=== PATIENT | female | born 1965 | race African-American/Black ===

== ENCOUNTER 2018-03-06 10:25 | Inpatient (IN) | payer OTHER ==
[2018-03-06 11:12] VITALS: BMI 22.6
--- NOTE | 2018-03-06 14:04 | HP ---
CIWA Score - CIWA Score Nausea/Vomitin Muscle Tremors: 1-None Visible, but [place] Anxiety: 2 Agitation: 0-Normal Activity Paroxysmal Sweats: 2 Orientation: 2-Disoriented Date<2 days Tacttile Disturbances: 1-Very Mild Itch/Numbness Auditory Disturbances: 0-None Visual Disturbances: 0-None Headache: 2-Mild CIWA-Ar Total Score: 12 Admission ROS S - HPI Chief Complaint: ETOH WITHDRAWAL SYMPTOMS. Allergies/Adverse Reactions: Allergies Allergy/AdvReac Type Severity Reaction Status Date / Time No Known Allergies Allergy Verified 03/06/18 11:45 History of Present Illness: PATIENT PRESENTS WITH ETOH WITHDRAWAL SYMPTOMS. PATIENT RECENTLY RELAPSED 4 MONTHS AGO AFTER 30 YEARS SOBER. DRINKS 6 PACK OF BEER DAILY AND ALSO SMOKES CRACK SINCE 29 YEARS OLD. SMOKES UP TO 100 DOLLARS OF CRACK DAILY. LAST TIME SHE USED BOTH SUBSTANCES WAS THIS MORNING. DENIES HX OF SEIZURES. THIS IS PATIENTS FIRST ATTEMPT AT DETOX. PMH INCLUDES ASTHMA AND HTN. DENIES HX OF SI, HI AND SUICIDE ATTEMPTS. +MARIJUANA USE, OCCASIONAL. UNABLE TO QUANTIFY. Exam Limitations: No Limitations - Ebola screening Have you traveled outside of the country in the last 21 days: No Have you had contact with anyone from an Ebola affected area: No Have you been sick,other than usual withdrawal symptoms: No Do you have a fever: No - Review of Systems Constitutional: Night Sweats, Changes in sleep, Unexplained wgt Loss EENT: reports: Tearing. denies: Nose Congestion, Throat Pain Respiratory: denies: Cough, Shortness of Breath Cardiac: denies: Chest Pain, Edema, Irregular Heart Rate GI: reports: Nausea, Poor Appetite, Poor Fluid Intake, Abdominal cramping : reports: Frequency Musculoskeletal: reports: Muscle Pain Integumentary: reports: Flushing. denies: Dryness, Rash Neuro: reports: Numbness, Tingling, Tremors. denies: Weakness Endocrine: reports: Unexplained Weight Loss Hematology: reports: Anemia Psychiatric: reports: Anxious, Depressed Patient History - Patient Medical History Hx Anemia: Yes Hx Asthma: Yes Hx Chronic Obstructive Pulmonary Disease (COPD): No Hx Cancer: No Hx Cardiac Disorders: No Hx Congestive Heart Failure: No Hx Hypertension: Yes Hx Hypercholesterolemia: No Hx Pacemaker: No HX Cerebrovascular Accident: No Hx Seizures: No Hx Dementia: No Hx Diabetes: No Hx Gastrointestinal Disorders: No Hx Liver Disease: No Hx Genitourinary Disorders: No Hx Sexually Transmitted Disorders: No Hx Renal Disease (ESRD): No Hx Thyroid Disease: No Hx Human Immunodeficiency Virus (HIV): No Hx Hepatitis C: No Hx Depression: Yes (not treated medically.) Hx Suicide Attempt: No Hx Bipolar Disorder: No Hx Schizophrenia: No - Patient Surgical History Past Surgical History: Yes Hx Neurologic Surgery: Yes (craniotomy) Hx Cataract Extraction: No Hx Cardiac Surgery: No Hx Lung Surgery: No Hx Breast Surgery: No Hx Breast Biopsy: No Hx Abdominal Surgery: No Hx Appendectomy: No Hx Cholecystectomy: No Hx Genitourinary Surgery: No Hx Section: No Hx Orthopedic Surgery: No Hx Hysterectomy: No Anesthesia Reaction: No - PPD History Previous Implant?: Yes Documented Results: Negative w/o proof Implanted On Prior R Admission?: No PPD to be Administered?: Yes - Reproductive History Patient is a Female of Child Bearing Age (11 -55 yrs old): Yes Patient : No - Smoking Cessation Smoking history: Current every day smoker Have you smoked in the past 12 months: Yes Aproximately how many cigarettes per day: 10 Hx Chewing Tobacco Use: No Initiated information on smoking cessation: Yes 'Breaking Loose' booklet given: 03/06/18 - Substance & Tx. History Hx Alcohol Use: Yes Hx Substance Use: Yes Substance Use Type: Alcohol, Cocaine, Marijuana - Substances Abused Crack Route: Smoking Frequency: Daily Amount used: $100-150 Age of first use: 31 Date of Last Use: 03/05/18 Alcohol-beer/wine Route: Oral Frequency: Daily Amount used: 1-6 pk./1 pt. Age of first use: 19 Date of Last Use: 03/06/18 Family Disease History - Family Disease History Family Disease History: [place]: Mother (BONE CANCER) Admission Physical Exam B[facility] - Vital Signs Vital Signs: Vital Signs - 24 hr 03/06/18 11:04 Temperature 98.6 F Pulse Rate 80 Respiratory 18 Rate Blood Pressure 174/107 - Physical General Appearance: Yes: No Apparent Distress, Appropriately Dressed, Intoxicated, Tremorous, Anxious HEENTM: Yes: EOMI, Hearing grossly Normal, Normocephalic, NILE, Pharynx Normal Respiratory: Yes: Chest Non-Tender, Lungs Clear, Normal Breath Sounds, No Respiratory Distress, No Accessory Muscle Use Neck: Yes: No masses,lesions,Nodules, Supple Breast: Yes: Breast Exam Deferred Cardiology: Yes: Regular Rhythm, Regular Rate, S1, S2 Abdominal: Yes: Normal Bowel Sounds, Non Tender, Soft Genitourinary: Yes: Frequency. No: Burning Back: Yes: Normal Inspection, Muscle Spasm Extremities: Yes: Normal Inspection, Normal Range of Motion, Non-Tender, Tremors Neurological: Yes: insurance healthcare consultant II-XII NML intact, Alert, Motor Strength 5/5, Depressed Affect Integumentary: Yes: Normal Color, Warm, Moist Lymphatic: Yes: Within Normal Limits - Diagnostic (1) Alcohol dependence with uncomplicated withdrawal Current Visit: Yes Status: Acute (2) Cocaine dependence Current Visit: Yes Status: Chronic Qualifiers: Substance use status: uncomplicated Qualified Code(s): F14.20 - Cocaine dependence, uncomplicated (3) Marijuana dependence Current Visit: Yes Status: Chronic (4) Asthma Current Visit: Yes Status: Acute Qualifiers: Asthma severity: mild (5) HTN (hypertension) Current Visit: Yes Status: Chronic Qualifiers: Hypertension type: essential hypertension Qualified Code(s): I10 - Essential (primary) hypertension (6) Depressed affect Current Visit: Yes Status: Suspected Cleared for Admission [facility] - Detox or Rehab [facility] Level of Care: Medically Managed Detox Regimen/Protocol: Librium [facility] Breath Alcohol Content Breath Alcohol Content: 0.063 Urine Pregancy Test - Result Urine Test Results: Negative- NO Line Present Urine Drug Screen - Results Drug Screen Negative: No Urine Drug Screen Results: THC-Marijuana, OUMAR-Cocaine
[2018-03-06] MEDS ORDERED: MAGNESIUM CITRATE 300 ML BOTTLE PO PRN (14:21)
[2018-03-06] MEDS ORDERED: IBUPROFEN 400 MG TABLET (FP) PO PRN (14:21)
[2018-03-06] MEDS ORDERED: MAG HYDROX/AL HYDROX/SIMETH 30 ML UNIT-DOSE CUP PO PRN (14:21)
[2018-03-06] MEDS ORDERED: LOPERAMIDE HCL 2 MG CAPSULE PO PRN (14:21)
[2018-03-06] MEDS ORDERED: MENTHOL/PHENOL 1 EACH UD MM PRN (14:21)
[2018-03-06] MEDS ORDERED: guaiFENesin/D-METHORPHAN HB 10 ML UNIT-DOSE CUPS PO PRN (14:21)
[2018-03-06] MEDS ORDERED: NICOTINE POLACRILEX 2 MG GUM BUC PRN (14:21)
[2018-03-06] MEDS ORDERED: hydrOXYzine PAMOATE 50 MG CAPSULE (FP) PO PRN (14:21)
[2018-03-06] MEDS ORDERED: P-EPHED 60MG/TRIPROLIDI 2.5MG TABLET PO PRN (14:21)
[2018-03-06] MEDS ORDERED: MAGNESIUM HYDROX 2400MG/30ML ORAL SUSPENSION 30 ML CUP PO PRN (14:21)
[2018-03-06] MEDS ORDERED: ALBUTEROL SO4 8 GM HFA INHALER IH PRN (14:25)
--- NOTE | 2018-03-06 14:31 | CONSULT ---
[facility] Psychiatric Consult - Data Date of interview: 03/06/18 [facility] Identifying data: This is a 52 years old female, mother of three, living alone, unemployed, on PA, with no psychiatric hospitalization history, reports alcohol withdrawal symptoms, reports Alcohol, Crack, Cannabis and Nicotijne dependence. Substance Abuse History: Smoking history: Current every day smoker. Have you smoked in the past 12 months: Yes. Aproximately how many cigarettes per day: 10. Hx Chewing Tobacco Use: No. Initiated information on smoking cessation: Yes. 'Breaking Loose' booklet given: 03/06/18. - Substance & Tx. History. Hx Alcohol Use: Yes. Hx Substance Use: Yes. Substance Use Type: Alcohol, Cocaine , Marijuana. - Substances Abused. Crack. Route: Smoking. Frequency: Daily. Amount used: $100-150. Age of first use: 31. Date of Last Use: . Alcohol-beer/wine. Route: Oral. Frequency: Daily. Amount used: 1-6 pk./1 pt. Age of first use: 19. Date of Last Use: 03/06/18 Medical History: HTN, Asthma Psychiatric History: Patient reports history of depression and anxiety, reports no suicidal, homiscidal history, reports no psychiatric medications taking prior to admission. Physical/Sexual Abuse/Trauma History: Denies Additional Comment: Observation. Detox Unit Care Protocol Mental Status Exam - Mental Status Exam Alert and Oriented to: Place, Person Cognitive Function: Fair Patient Appearance: Well Groomed Mood: Apprehensive Affect: Mood Congruent Patient Behavior: Cooperative Speech Pattern: Appropriate Voice Loudness: Normal Thought Process: Goal Oriented Thought Disorder: Being Controlled Hallucinations: Denies Suicidal Ideation: Denies Homicidal Ideation: Denies Insight/Judgement: Fair Sleep: Difficulty falling asleep Appetite: Weight loss Muscle strength/Tone: Mild Hypotonicity Gait/Station: Normal Additional Comments: Observation. Detox Unit Care Protocol Psychiatric Findings - Problem List ([place] 1, 2,3) (1) Nicotine dependence Current Visit: Yes Status: Acute (2) Alcohol dependence with uncomplicated withdrawal Current Visit: Yes Status: Acute (3) Asthma Current Visit: Yes Status: Acute Qualifiers: Asthma severity: mild (4) Cocaine dependence Current Visit: Yes Status: Chronic Qualifiers: Substance use status: uncomplicated Qualified Code(s): F14.20 - Cocaine dependence, uncomplicated (5) HTN (hypertension) Current Visit: Yes Status: Chronic Qualifiers: Hypertension type: essential hypertension Qualified Code(s): I10 - Essential (primary) hypertension (6) Marijuana dependence Current Visit: Yes Status: Chronic - Initial Treatment Plan Initial Treatment Plan: Observation. Detox Unit Care Protocol
[2018-03-06] MEDS ORDERED: cloNIDine HCL 0.1 MG TABLET PO ONE (14:45)
--- NOTE | 2018-03-06 15:42 | EKG ---
Test Reason : Blood Pressure : / mmHG Vent. Rate : 076 BPM Atrial Rate : 076 BPM P-R Int : 134 ms QRS Dur : 082 ms QT Int : 394 ms P-R-T Axes : 051 025 -52 degrees QTc Int : 443 ms NORMAL SINUS RHYTHM POSSIBLE LEFT ATRIAL ENLARGEMENT LEFT VENTRICULAR HYPERTROPHY T WAVE ABNORMALITY, CONSIDER INFERIOR ISCHEMIA T WAVE ABNORMALITY, CONSIDER ANTEROLATERAL ISCHEMIA ABNORMAL ECG NO PREVIOUS ECGS AVAILABLE Confirmed by FRANK ELIZALDE, YANET ([id number]) on 03/06/2018 3:41:53 PM Referred By: Confirmed By:YANET MARIE MD
[2018-03-06] MEDS: chlordiazePOXIDE HCL 25 MG CAPSULE PO PRN (15:58)
[2018-03-06] MEDS: chlordiazePOXIDE HCL 25 MG CAPSULE PO SCH ×2 (17:27→22:04)
[2018-03-06] MEDS: ACETAMINOPHEN 325 MG TABLET (FP) PO PRN (19:09)
--- NOTE | 2018-03-06 19:44 | PN ---
[facility] Progress Note Note: Vital Signs Temperature 101.5 F H 03/06/18 17:37 Pulse Rate 90 03/06/18 17:37 Respiratory Rate 18 03/06/18 17:37 Blood Pressure 158/90 03/06/18 17:37 O2 Sat by Pulse Oximetry (%) give tylenol repeat v/s in an hour labs pending if fever persist, patient to be transfer to [facility] continue to monitor
[2018-03-06] MEDS ORDERED: MELATONIN 5 MG TABLETS PO PRN (22:00)
[2018-03-06] MEDS: THIAMINE HCL 100 MG TABLET (FP) PO SCH (22:03)
[2018-03-07] MEDS: chlordiazePOXIDE HCL 25 MG CAPSULE PO SCH ×4 (05:30→22:18)
[2018-03-07 11:13] LABS: HEMATOCRIT 44.6 % (32.4-45.2); HEMOGLOBIN 14.3 GM/dL (10.7-15.3); MCH 27.9 pg (25.7-33.7); MCHC 32.1 g/dl (32.0-36.0); MEAN CELL VOLUME 86.9 fl (80-96); MEAN PLT VOLUME 7.8 fl (7.5-11.1); PLATELET COUNT 356 K/MM3 (134-434); RBC 5.14 M/mm3 (3.60-5.2); RDW 14.2 % (11.6-15.6); WHITE BLOOD COUNT 7.9 K/mm3 (4.0-10.0)
--- NOTE | 2018-03-07 11:14 | PN ---
[facility] CIWA - CIWA Score Nausea/Vomitin Muscle Tremors: 2 Anxiety: 2 Agitation: 2 Paroxysmal Sweats: 3 Orientation: 0-Oriented Tacttile Disturbances: 1-Very Mild Itch/Numbness Auditory Disturbances: 0-None Visual Disturbances: 0-None Headache: 0-None Present CIWA-Ar Total Score: 12 BHS Progress Note (SOAP) Subjective: interruptedd sleep sweats, no fever, cough , sob or dysuria , WANTS A SMOKING PATCH Objective: 03/07/18 11:09 Vital Signs Temperature 97.9 F 03/07/18 09:39 Pulse Rate 84 03/07/18 09:39 Respiratory Rate 18 03/07/18 09:39 Blood Pressure 134/84 03/07/18 09:39 O2 Sat by Pulse Oximetry (%) pending labs pt aox3 in nad ambulating , Assessment: 03/07/18 11:09 withdrawal sx's fever last night AT PRESENT PT APPEARING WELL W/O COMPLAINTSTEMP 97.9 ; LABS PENDING Plan: CONT. DETOX INCREASE FLUIDS MONITOR TEMPS F/UP PENDING LABS NICOTINE 21 MG /DAY ENSURE BID
[2018-03-07 11:19] LABS: CHLORIDE 107 mmol/L (98-107); POTASSIUM 3.7 mmol/L (3.5-5.1); SODIUM 143 mmol/L (136-145)
[2018-03-07 11:28] LABS: ALBUMIN 3.5 g/dl (3.4-5.0); ALK PHOS 112 U/L (45-117); ANION GAP 16 MMOL/L (8-16); BILIRUBIN,TOTAL 0.5 mg/dL (0.2-1.0); BLOOD UREA NITROGEN 11 mg/dL (7-18); CALCIUM 9.2 mg/dL (8.5-10.1); CO2 20 mmol/L (21-32); CREATININE 0.8 mg/dL (0.55-1.3); GLUCOSE,RANDOM 86 mg/dL (74-106); SGOT/AST 15 U/L (15-37); SGPT/ALT 18 U/L (13-61); TOT PROT 7.5 g/dl (6.4-8.2)
[2018-03-07] MEDS: chlordiazePOXIDE HCL 25 MG CAPSULE PO PRN (11:58)
[2018-03-07] MEDS: NICOTINE 21 MG/24 HOURS TOPICAL PATCH TD SCH (12:00)
[2018-03-07] MEDS: PRENATAL VITAMINS W/ FOLIC ACID TABLET (FP) PO SCH (12:00)
[2018-03-07 17:45] LABS: URINE APPEARANCE CLOUDY; URINE BILIRUBIN NEGATIVE (<2.0 mg/dL); URINE COLOR YELLOW; URINE GLUCOSE (UA) NEGATIVE (NEGATIVE); URINE KETONE NEGATIVE (NEGATIVE); URINE NITRITE NEGATIVE (NEGATIVE); URINE PROTEIN NEGATIVE (NEGATIVE); URINE UROBILINOGEN NEGATIVE mg/dL (0.2-1.0)
[2018-03-07 17:50] LABS: URINE LEUK ESTERASE 3+ (NEGATIVE)
[2018-03-07 17:51] LABS: EPI CELLS RARE /HPF (FEW); URINE BACTERIA RARE /hpf (NONE SEEN); URINE HYALINE CAST 3 /lpf; URINE MUCUS RARE
[2018-03-07] MEDS: ACETAMINOPHEN 325 MG TABLET (FP) PO PRN (20:37)
[2018-03-07] MEDS: THIAMINE HCL 100 MG TABLET (FP) PO SCH (22:18)
[2018-03-08] MEDS: chlordiazePOXIDE HCL 25 MG CAPSULE PO SCH ×2 (06:14→10:08)
[2018-03-08] MEDS: PRENATAL VITAMINS W/ FOLIC ACID TABLET (FP) PO SCH (10:08)
[2018-03-08] MEDS: NICOTINE 21 MG/24 HOURS TOPICAL PATCH TD SCH (10:08)
--- NOTE | 2018-03-08 11:33 | PN ---
S CIWA - CIWA Score Nausea/Vomitin-Mild Nausea/No Vomiting Muscle Tremors: 1-None Visible, but [place] Anxiety: 1-Mildly Anxious Agitation: 1-Slight > Activity Paroxysmal Sweats: No Perspiration Orientation: 0-Oriented Tacttile Disturbances: 0-None Auditory Disturbances: 0-None Visual Disturbances: 0-None Headache: 0-None Present CIWA-Ar Total Score: 4 [facility] Progress Note (SOAP) Subjective: S: states she is feeling fine, would like ensure. O: Vital Signs - 24 hr 03/07/18 03/07/18 03/07/18 14:36 18:02 20:35 Temperature 98.0 F 98.0 F 100.2 F H Pulse Rate 86 86 Respiratory 20 20 Rate Blood Pressure 138/80 117/70 03/07/18 03/08/18 03/08/18 22:06 03:30 07:28 Temperature 100.2 F H 97 F L Pulse Rate 104 H 75 Respiratory 16 18 20 Rate Blood Pressure 147/80 137/78 03/08/18 08:43 Temperature 98.1 F Pulse Rate 94 H Respiratory 18 Rate Blood Pressure 106/74 Laboratory Tests 03/07/18 03/07/18 03/07/18 06:00 06:00 06:00 WBC 7.9 RBC 5.14 Hgb 14.3 Hct 44.6 MCV 86.9 MCH 27.9 MCHC 32.1 RDW 14.2 Plt Count 356 MPV 7.8 Sodium 143 Potassium 3.7 Chloride 107 Carbon Dioxide 20 L Anion Gap 16 BUN 11 Creatinine 0.8 Creat Clearance w eGFR > 60 Random Glucose 86 Calcium 9.2 Total Bilirubin 0.5 AST 15 ALT 18 Alkaline Phosphatase 112 Total Protein 7.5 Albumin 3.5 Urine Color Urine Appearance Urine pH Ur Specific [place] Urine Protein Urine Glucose (UA) Urine Ketones Urine Blood Urine Nitrite Urine Bilirubin Urine Urobilinogen Ur Leukocyte Esterase Urine WBC (Auto) Urine RBC (Auto) Ur Epithelial Cells Urine Bacteria Hyaline Casts Urine Mucus RPR Titer Nonreactive 03/07/18 14:00 WBC RBC Hgb Hct MCV MCH MCHC RDW Plt Count MPV Sodium Potassium Chloride Carbon Dioxide Anion Gap BUN Creatinine Creat Clearance w eGFR Random Glucose Calcium Total Bilirubin AST ALT Alkaline Phosphatase Total Protein Albumin Urine Color Yellow Urine Appearance Cloudy Urine pH 5.0 Ur Specific [place] 1.013 Urine Protein Negative Urine Glucose (UA) Negative Urine Ketones Negative Urine Blood 3+ H Urine Nitrite Negative Urine Bilirubin Negative Urine Urobilinogen Negative Ur Leukocyte Esterase 3+ H Urine WBC (Auto) 534 Urine RBC (Auto) 14 Ur Epithelial Cells Rare Urine Bacteria Rare Hyaline Casts 3 Urine Mucus Rare RPR Titer high WBC/blood in urine, nl VS Ass: ETOH WITHDRAWAL SYMPTOMS- continue detox protocol r/o UTI- pt asymptomatic, check Ucx- ordered
[2018-03-08] MEDS: chlordiazePOXIDE 5 MG CAPSULE PO SCH ×2 (18:10→23:01)
[2018-03-08] MEDS: THIAMINE HCL 100 MG TABLET (FP) PO SCH (23:01)
--- NOTE | 2018-03-09 02:28 | PN ---
S Progress Note Note: MD'S NOTE: INFORMED AT 2:00AM THAT THE PT. FELL ON HER LEFT KNEE ACCIDENTALLY C/O: MILD PAIN IN LEFT KNEE+ DENIES HITTING THE HEAD NOC O/E: THE PT. PIERRE X 3 NOT IN DISTRESS AND SHE IS AMBULATORY L/E: LEFT KNEE: NO SWELLING NOTED NO DEFORMITY NOTED MILD TENDERNESS ON PATE[place]ER REGION NOTED MOVEMENT ARE SATISFACTORY AT THIS TIME IMPRESSION: ACCIDENTAL FALL WITH SOFT TISSUE INJURY LEFT KNEE PLANS: ICE PACKING ON LEFT KNEE PRN ANALGESICS OBSERVATION WILL CONSIDER X-RAY OF LEFT KNEE - NEEDED PROVIDER GRACIE NAVA MD
[2018-03-09] MEDS: chlordiazePOXIDE 5 MG CAPSULE PO SCH ×2 (06:32→10:33)
[2018-03-09] MEDS: PRENATAL VITAMINS W/ FOLIC ACID TABLET (FP) PO SCH (09:38)
[2018-03-09] MEDS: NICOTINE 21 MG/24 HOURS TOPICAL PATCH TD SCH (09:38)
--- NOTE | 2018-03-09 13:47 | PN ---
S Progress Note (SOAP) Subjective: feeling better no tremor less sweat sleep better at night denies dizziness denies weakness reported fell "last night" right knee on the ground left knee skin intact no swell no redness full range of motion ambulate on [address] attend groups and meetings social with peers in day room Objective: 03/09/18 13:46 Vital Signs Temperature 97.7 F 03/09/18 12:15 Pulse Rate 76 03/09/18 12:15 Respiratory Rate 16 03/09/18 12:15 Blood Pressure 135/79 03/09/18 12:15 O2 Sat by Pulse Oximetry (%) Laboratory Last Values WBC 7.9 K/mm3 (4.0-10.0) 03/07/18 06:00 RBC 5.14 M/mm3 (3.60-5.2) 03/07/18 06:00 Hgb 14.3 GM/dL (10.7-15.3) 03/07/18 06:00 Hct 44.6 % (32.4-45.2) 03/07/18 06:00 MCV 86.9 fl (80-96) 03/07/18 06:00 MCH 27.9 pg (25.7-33.7) 03/07/18 06:00 MCHC 32.1 g/dl (32.0-36.0) 03/07/18 06:00 RDW 14.2 % (11.6-15.6) 03/07/18 06:00 Plt Count 356 K/MM3 (134-434) 03/07/18 06:00 MPV 7.8 fl (7.5-11.1) 03/07/18 06:00 Sodium 143 mmol/L (136-145) 03/07/18 06:00 Potassium 3.7 mmol/L (3.5-5.1) 03/07/18 06:00 Chloride 107 mmol/L (98-107) 03/07/18 06:00 Carbon Dioxide 20 mmol/L (21-32) L 03/07/18 06:00 Anion Gap 16 MMOL/L (8-16) 03/07/18 06:00 BUN 11 mg/dL (7-18) 03/07/18 06:00 Creatinine 0.8 mg/dL (0.55-1.3) 03/07/18 06:00 Creat Clearance w eGFR > 60 (>60) 03/07/18 06:00 Random Glucose 86 mg/dL (74-106) 03/07/18 06:00 Calcium 9.2 mg/dL (8.5-10.1) 03/07/18 06:00 Total Bilirubin 0.5 mg/dL (0.2-1.0) 03/07/18 06:00 AST 15 U/L (15-37) 03/07/18 06:00 ALT 18 U/L (13-61) 03/07/18 06:00 Alkaline Phosphatase 112 U/L (45-117) 03/07/18 06:00 Total Protein 7.5 g/dl (6.4-8.2) 03/07/18 06:00 Albumin 3.5 g/dl (3.4-5.0) 03/07/18 06:00 Urine Color Yellow 03/07/18 14:00 Urine Appearance Cloudy 03/07/18 14:00 Urine pH 5.0 (5.0-8.0) 03/07/18 14:00 Ur Specific [place] 1.013 (1.001-1.035) 03/07/18 14:00 Urine Protein Negative (NEGATIVE) 03/07/18 14:00 Urine Glucose (UA) Negative (NEGATIVE) 03/07/18 14:00 Urine Ketones Negative (NEGATIVE) 03/07/18 14:00 Urine Blood 3+ (NEGATIVE) H 03/07/18 14:00 Urine Nitrite Negative (NEGATIVE) 03/07/18 14:00 Urine Bilirubin Negative (<2.0 mg/dL) 03/07/18 14:00 Urine Urobilinogen Negative mg/dL (0.2-1.0) 03/07/18 14:00 Ur Leukocyte Esterase 3+ (NEGATIVE) H 03/07/18 14:00 Urine WBC (Auto) 534 /hpf (3-5) 03/07/18 14:00 Urine RBC (Auto) 14 /hpf (0-3) 03/07/18 14:00 Ur Epithelial Cells Rare /HPF (FEW) 03/07/18 14:00 Urine Bacteria Rare /hpf (NONE SEEN) 03/07/18 14:00 Hyaline Casts 3 /lpf 03/07/18 14:00 Urine Mucus Rare 03/07/18 14:00 RPR Titer Nonreactive (NONREACTIVE) 03/07/18 06:00 lab noted uti 03/09/18 13:48 Assessment: 03/09/18 13:48 mild withdrawal sx uti Plan: medically supervised detox bactrim ds bid
[2018-03-09] MEDS: SULFAMETHOXAZOLE/TRIMETHOPRIM 800MG/160MG D.S. TABLET PO SCH ×2 (14:19→22:04)
[2018-03-09] MEDS: chlordiazePOXIDE HCL 10 MG CAPSULE PO SCH ×2 (17:10→22:04)
[2018-03-09] MEDS: THIAMINE HCL 100 MG TABLET (FP) PO SCH (22:05)
[2018-03-10] MEDS: chlordiazePOXIDE HCL 10 MG CAPSULE PO SCH (06:23)
--- NOTE | 2018-03-10 08:39 | DS ---
[facility] Detox Discharge Summary Admission Date: 03/06/18 Discharge Date: 03/10/18 - History Present History: Alcohol Dependence Additional Comments: 52 years old female admitted on 03/06/18 for alcohol withdrawal sx completed alcohol detox regimen tolerated well denies alcohol withdrawal sx alert oriented x 3 no acute distress aftercare [facility] Pertinent Past History: patient agrees to follow up with [facility] for medical mental and addiction issues - Physical Exam Results Vital Signs: Vital Signs Temperature 98.1 F 03/10/18 06:00 Pulse Rate 79 03/10/18 06:00 Respiratory Rate 18 03/10/18 06:00 Blood Pressure 135/79 03/10/18 06:00 O2 Sat by Pulse Oximetry (%) Pertinent Admission Physical Exam Findings: Vital Signs Temperature 97.9 F 03/10/18 09:33 Pulse Rate 85 03/10/18 09:33 Respiratory Rate 18 03/10/18 09:33 Blood Pressure 128/75 03/10/18 09:33 O2 Sat by Pulse Oximetry (%) Laboratory Last Values WBC 7.9 K/mm3 (4.0-10.0) 03/07/18 06:00 RBC 5.14 M/mm3 (3.60-5.2) 03/07/18 06:00 Hgb 14.3 GM/dL (10.7-15.3) 03/07/18 06:00 Hct 44.6 % (32.4-45.2) 03/07/18 06:00 MCV 86.9 fl (80-96) 03/07/18 06:00 MCH 27.9 pg (25.7-33.7) 03/07/18 06:00 MCHC 32.1 g/dl (32.0-36.0) 03/07/18 06:00 RDW 14.2 % (11.6-15.6) 03/07/18 06:00 Plt Count 356 K/MM3 (134-434) 03/07/18 06:00 MPV 7.8 fl (7.5-11.1) 03/07/18 06:00 Sodium 143 mmol/L (136-145) 03/07/18 06:00 Potassium 3.7 mmol/L (3.5-5.1) 03/07/18 06:00 Chloride 107 mmol/L (98-107) 03/07/18 06:00 Carbon Dioxide 20 mmol/L (21-32) L 03/07/18 06:00 Anion Gap 16 MMOL/L (8-16) 03/07/18 06:00 BUN 11 mg/dL (7-18) 03/07/18 06:00 Creatinine 0.8 mg/dL (0.55-1.3) 03/07/18 06:00 Creat Clearance w eGFR > 60 (>60) 03/07/18 06:00 Random Glucose 86 mg/dL (74-106) 03/07/18 06:00 Calcium 9.2 mg/dL (8.5-10.1) 03/07/18 06:00 Total Bilirubin 0.5 mg/dL (0.2-1.0) 03/07/18 06:00 AST 15 U/L (15-37) 03/07/18 06:00 ALT 18 U/L (13-61) 03/07/18 06:00 Alkaline Phosphatase 112 U/L (45-117) 03/07/18 06:00 Total Protein 7.5 g/dl (6.4-8.2) 03/07/18 06:00 Albumin 3.5 g/dl (3.4-5.0) 03/07/18 06:00 Urine Color Yellow 03/07/18 14:00 Urine Appearance Cloudy 03/07/18 14:00 Urine pH 5.0 (5.0-8.0) 03/07/18 14:00 Ur Specific [place] 1.013 (1.001-1.035) 03/07/18 14:00 Urine Protein Negative (NEGATIVE) 03/07/18 14:00 Urine Glucose (UA) Negative (NEGATIVE) 03/07/18 14:00 Urine Ketones Negative (NEGATIVE) 03/07/18 14:00 Urine Blood 3+ (NEGATIVE) H 03/07/18 14:00 Urine Nitrite Negative (NEGATIVE) 03/07/18 14:00 Urine Bilirubin Negative (<2.0 mg/dL) 03/07/18 14:00 Urine Urobilinogen Negative mg/dL (0.2-1.0) 03/07/18 14:00 Ur Leukocyte Esterase 3+ (NEGATIVE) H 03/07/18 14:00 Urine WBC (Auto) 534 /hpf (3-5) 03/07/18 14:00 Urine RBC (Auto) 14 /hpf (0-3) 03/07/18 14:00 Ur Epithelial Cells Rare /HPF (FEW) 03/07/18 14:00 Urine Bacteria Rare /hpf (NONE SEEN) 03/07/18 14:00 Hyaline Casts 3 /lpf 03/07/18 14:00 Urine Mucus Rare 03/07/18 14:00 RPR Titer Nonreactive (NONREACTIVE) 03/07/18 06:00 lab noted - Treatment Hospital Course: Detox Protocol Followed, Detoxed Safely, Responded well, Discharged Condition Good, Rehab Referral Accepted Patient has Accepted a Rehab Referral to: [facility] - Medication Discharge Medications: Ambulatory Orders Albuterol Sulfate Inhaler - [Ventolin HFA Inhaler -] 2 inh PO Q4H PRN #1 inhaler 03/09/18 - Diagnosis (1) Alcohol dependence with uncomplicated withdrawal Status: Acute (2) Asthma Status: Chronic Qualifiers: Asthma severity: mild Asthma persistence: intermittent Asthma complication type: uncomplicated Qualified Code(s): J45.20 - Mild intermittent asthma, uncomplicated (3) HTN (hypertension) Status: Chronic Qualifiers: Hypertension type: essential hypertension Qualified Code(s): I10 - Essential (primary) hypertension (4) Nicotine dependence Status: Acute Qualifiers: Nicotine product type: cigarettes Substance use status: in withdrawal Qualified Code(s): F17.213 - Nicotine dependence, cigarettes, with withdrawal - AMA Did Patient Leave Against Medical Advice: No
[2018-03-10 09:33] VITALS: BP 128/75; PULSE 85; TEMP 97.9
== END 2018-03-10 11:40 | disposition home or self-care (01) | DRG 774 ==
LOC: YASAS 10:25 → Y6N 14:24
PROC: HZ2ZZZZ Detoxification Services for Substance Abuse Treatment (ICD-10-PCS; principal; 2018-03-06)
DX: F10.230 Alcohol dependence with withdrawal, uncomplicated (principal); F14.20 Cocaine dependence, uncomplicated; F12.20 Cannabis dependence, uncomplicated; F17.213 Nicotine dependence, cigarettes, with withdrawal; F32.9 Major depressive disorder, single episode, unspecified; I10 Essential (primary) hypertension; J45.20 Mild intermittent asthma, uncomplicated; R45.89 Other symptoms and signs involving emotional state
CPT/HCPCS: 36415; 80053; 81003; 81015; 85027; 86593; 87086; 87186; 93005; 93010; J0735

== ENCOUNTER 2018-03-31 19:12 | Inpatient (IN) | payer OTHER ==
[2018-03-31 19:38] VITALS: BMI 24.5
--- NOTE | 2018-03-31 21:28 | HP ---
Admission ROS [facility] Chief Complaint: Seeking admission to Rehab Allergies/Adverse Reactions: Allergies Allergy/AdvReac Type Severity Reaction Status Date / Time No Known Allergies Allergy Verified 03/06/18 11:45 History of Present Illness: 52 years old female with a history of alcohol dependence is seeking admission to Rehab. Patient has been in previous Rehab. She medical history of anxiety, hypertension, anemia, asthma and depression. Patient denies suicide attempt or suicidal ideation at this time Exam Limitations: No Limitations - Ebola screening Have you traveled outside of the country in the last 21 days: No (N) Have you had contact with anyone from an Ebola affected area: No Have you been sick,other than usual withdrawal symptoms: No Do you have a fever: No - Review of Systems Constitutional: No Symptoms Reported EENT: reports: No Symptoms Reported Respiratory: reports: No Symptoms reported Cardiac: reports: No Symptoms Reported GI: reports: No Symptoms Reported : reports: No Symptoms Reported Musculoskeletal: reports: No Symptoms Reported Integumentary: reports: No Symptoms Reported Neuro: reports: No Symptoms reported Endocrine: reports: No Symptoms Reported Hematology: reports: No Symptoms Reported Psychiatric: reports: No Sypmtoms Reported, Mood/Affect Appropiate, Orientated x3 Other Systems: Reviewed and Negative Patient History - Patient Medical History Hx Anemia: Yes (Not on medication) Hx Asthma: Yes (MDI) Hx Chronic Obstructive Pulmonary Disease (COPD): No Hx Cancer: No Hx Cardiac Disorders: No Hx Congestive Heart Failure: No Hx Hypertension: Yes (Not on medication) Hx Hypercholesterolemia: No Hx Pacemaker: No HX Cerebrovascular Accident: No Hx Seizures: No Hx Dementia: No Hx Diabetes: No Hx Gastrointestinal Disorders: No Hx Liver Disease: No Hx Genitourinary Disorders: No Hx Sexually Transmitted Disorders: No Hx Renal Disease (ESRD): No Hx Thyroid Disease: No Hx Human Immunodeficiency Virus (HIV): No Hx Hepatitis C: No Hx Depression: Yes (not treated medically.) Hx Suicide Attempt: No Hx Bipolar Disorder: No Hx Schizophrenia: No Other Medical History: Anxiety - Not on medication - Patient Surgical History Past Surgical History: Yes Hx Neurologic Surgery: Yes (craniotomy) Hx Cataract Extraction: No Hx Cardiac Surgery: No Hx Lung Surgery: No Hx Breast Surgery: No Hx Breast Biopsy: No Hx Abdominal Surgery: No Hx Appendectomy: No Hx Cholecystectomy: No Hx Genitourinary Surgery: No Hx Section: No Hx Orthopedic Surgery: No Hx Hysterectomy: No Anesthesia Reaction: No - PPD History Documented Results: Negative w/proof Date: 03/08/18 PPD to be Administered?: No - Reproductive History Patient is a Female of Child Bearing Age (11 -55 yrs old): Yes LMP comment: Menopausal - Smoking Cessation Smoking history: Current every day smoker Have you smoked in the past 12 months: Yes Aproximately how many cigarettes per day: 10 Hx Chewing Tobacco Use: No Initiated information on smoking cessation: Yes 'Breaking Loose' booklet given: 03/31/18 - Substance & Tx. History Hx Alcohol Use: Yes Hx Substance Use: Yes Substance Use Type: Cocaine, Marijuana Hx Substance Use Treatment: Yes ([facility]) Family Disease History - Family Disease History Family Disease History: CA: Mother (BONE CANCER) Admission Physical Exam [facility] - Vital Signs Vital Signs: Vital Signs - 24 hr 03/31/18 19:36 Temperature 97.7 F Pulse Rate 83 Respiratory 18 Rate Blood Pressure 140/80 - Physical General Appearance: Yes: No Apparent Distress HEENTM: Yes: Within Normal Limits, Normal ENT Inspection, Normocephalic, Normal Voice Respiratory: Yes: Lungs Clear, Normal Breath Sounds, No Respiratory Distress Neck: Yes: Supple Breast: Yes: Breast Exam Deferred Cardiology: Yes: Regular Rhythm, Regular Rate Abdominal: Yes: Normal Bowel Sounds, Soft Genitourinary: Yes: Within Normal Limits Back: Yes: Normal Inspection Musculoskeletal: Yes: Within Normal Limits Extremities: Yes: Normal Inspection Neurological: Yes: processing supervisor II-XII NML intact, Alert, Normal Mood/Affect Integumentary: Yes: Within Normal Limits Lymphatic: Yes: Within Normal Limits - Diagnostic (1) Depression Current Visit: Yes Status: Chronic Qualifiers: Depression Type: unspecified Qualified Code(s): F32.9 - Major depressive disorder, single episode, unspecified (2) Anxiety Current Visit: Yes Status: Chronic (3) Uncomplicated alcohol dependence Current Visit: Yes Status: Chronic (4) Nicotine dependence Current Visit: Yes Status: Chronic Qualifiers: Nicotine product type: cigarettes Substance use status: in withdrawal Qualified Code(s): F17.213 - Nicotine dependence, cigarettes, with withdrawal (5) Asthma Current Visit: Yes Status: Chronic Qualifiers: Asthma severity: mild Asthma persistence: intermittent Asthma complication type: uncomplicated Qualified Code(s): J45.20 - Mild intermittent asthma, uncomplicated (6) Cocaine dependence Current Visit: Yes Status: Chronic Qualifiers: Substance use status: uncomplicated Qualified Code(s): F14.20 - Cocaine dependence, uncomplicated (7) HTN (hypertension) Current Visit: Yes Status: Chronic Qualifiers: Hypertension type: essential hypertension Qualified Code(s): I10 - Essential (primary) hypertension (8) Marijuana dependence Current Visit: Yes Status: Chronic [facility] Breath Alcohol Content Breath Alcohol Content: 0 Urine Pregancy Test - Result Urine Test Results: Negative- NO Line Present Urine Drug Screen - Results Drug Screen Negative: No Urine Drug Screen Results: THC-Marijuana, OUMAR-Cocaine, BZO-Benzodiazepines
[2018-03-31] MEDS ORDERED: MELATONIN 5 MG TABLETS PO PRN (22:00)
[2018-03-31] MEDS ORDERED: guaiFENesin/D-METHORPHAN HB 10 ML UNIT-DOSE CUPS PO PRN (23:22)
[2018-03-31] MEDS ORDERED: LOPERAMIDE HCL 2 MG CAPSULE PO PRN (23:22)
[2018-03-31] MEDS ORDERED: MENTHOL/PHENOL 1 EACH UD MM PRN (23:22)
[2018-03-31] MEDS ORDERED: MAGNESIUM CITRATE 300 ML BOTTLE PO PRN (23:22)
[2018-03-31] MEDS ORDERED: MAGNESIUM HYDROX 2400MG/30ML ORAL SUSPENSION 30 ML CUP PO PRN (23:22)
[2018-03-31] MEDS ORDERED: ACETAMINOPHEN 325 MG TABLET (FP) PO PRN (23:22)
[2018-03-31] MEDS ORDERED: IBUPROFEN 400 MG TABLET (FP) PO PRN (23:22)
[2018-03-31] MEDS ORDERED: MAG HYDROX/AL HYDROX/SIMETH 30 ML UNIT-DOSE CUP PO PRN (23:22)
[2018-04-01] MEDS: PRENATAL VITAMINS W/ FOLIC ACID TABLET (FP) PO SCH (09:47)
[2018-04-01 11:10] LABS: MCH 27.3 pg (25.7-33.7); MCHC 31.8 g/dl (32.0-36.0); MEAN CELL VOLUME 85.7 fl (80-96); MEAN PLT VOLUME 7.3 fl (7.5-11.1); PLATELET COUNT 345 K/MM3 (134-434); RBC 4.78 M/mm3 (3.60-5.2); RDW 13.7 % (11.6-15.6); WHITE BLOOD COUNT 8.6 K/mm3 (4.0-10.0)
[2018-04-01 11:29] LABS: ALBUMIN 3.3 g/dl (3.4-5.0); ALK PHOS 115 U/L (45-117); ANION GAP 5 MMOL/L (8-16); BILIRUBIN,TOTAL 0.3 mg/dL (0.2-1); BLOOD UREA NITROGEN 17 mg/dL (7-18); CHLORIDE 106 mmol/L (98-107); CO2 29 mmol/L (21-32); CREATININE 0.7 mg/dL (0.55-1.3); GLUCOSE,RANDOM 115 mg/dL (74-106); SGOT/AST 21 U/L (15-37); SGPT/ALT 26 U/L (13-61); SODIUM 140 mmol/L (136-145); TOT PROT 6.9 g/dl (6.4-8.2)
--- NOTE | 2018-04-01 11:48 | EKG ---
Test Reason : Blood Pressure : / mmHG Vent. Rate : 074 BPM Atrial Rate : 074 BPM P-R Int : 142 ms QRS Dur : 092 ms QT Int : 438 ms P-R-T Axes : 052 024 006 degrees QTc Int : 486 ms NORMAL SINUS RHYTHM MINIMAL VOLTAGE CRITERIA FOR LVH, MAY BE NORMAL VARIANT SEPTAL INFARCT , AGE UNDETERMINED ABNORMAL ECG WHEN COMPARED WITH ECG OF 31-MAR-2018 22:12, NO SIGNIFICANT CHANGE WAS FOUND Confirmed by Arthur Bundy MD ([id number]) on 04/01/2018 11:48:08 AM Referred By: Confirmed By:Arthur Bundy MD
--- NOTE | 2018-04-01 12:44 | PN ---
[facility] Progress Note Note: Vital Signs Temperature 97.7 F 04/01/18 07:05 Pulse Rate 69 04/01/18 07:05 Respiratory Rate 18 04/01/18 07:05 Blood Pressure 142/85 04/01/18 07:05 O2 Sat by Pulse Oximetry (%) Laboratory Last Values WBC 8.6 K/mm3 (4.0-10.0) 04/01/18 07:00 RBC 4.78 M/mm3 (3.60-5.2) 04/01/18 07:00 Hgb 13.0 GM/dL (10.7-15.3) 04/01/18 07:00 Hct 41.0 % (32.4-45.2) 04/01/18 07:00 MCV 85.7 fl (80-96) 04/01/18 07:00 MCH 27.3 pg (25.7-33.7) 04/01/18 07:00 MCHC 31.8 g/dl (32.0-36.0) L 04/01/18 07:00 RDW 13.7 % (11.6-15.6) 04/01/18 07:00 Plt Count 345 K/MM3 (134-434) 04/01/18 07:00 MPV 7.3 fl (7.5-11.1) L 04/01/18 07:00 Sodium 140 mmol/L (136-145) 04/01/18 07:00 Potassium 4.0 mmol/L (3.5-5.1) 04/01/18 07:00 Chloride 106 mmol/L (98-107) 04/01/18 07:00 Carbon Dioxide 29 mmol/L (21-32) 04/01/18 07:00 Anion Gap 5 MMOL/L (8-16) L 04/01/18 07:00 BUN 17 mg/dL (7-18) 04/01/18 07:00 Creatinine 0.7 mg/dL (0.55-1.3) 04/01/18 07:00 Creat Clearance w eGFR > 60 (>60) 04/01/18 07:00 Random Glucose 115 mg/dL (74-106) H 04/01/18 07:00 Calcium 9.0 mg/dL (8.5-10.1) 04/01/18 07:00 Total Bilirubin 0.3 mg/dL (0.2-1) 04/01/18 07:00 AST 21 U/L (15-37) 04/01/18 07:00 ALT 26 U/L (13-61) 04/01/18 07:00 Alkaline Phosphatase 115 U/L (45-117) 04/01/18 07:00 Total Protein 6.9 g/dl (6.4-8.2) 04/01/18 07:00 Albumin 3.3 g/dl (3.4-5.0) L 04/01/18 07:00 RPR Titer Nonreactive (NONREACTIVE) 04/01/18 07:00 Labs reviewed U/A results pending Patient stable Continue to monitor
[2018-04-01] MEDS ORDERED: NICOTINE POLACRILEX 2 MG GUM BUC PRN (13:53)
[2018-04-01] MEDS: hydrOXYzine PAMOATE 50 MG CAPSULE (FP) PO PRN (15:49)
[2018-04-01 15:54] LABS: URINE APPEARANCE CLOUDY; URINE BILIRUBIN NEGATIVE (<2.0 mg/dL); URINE COLOR YELLOW; URINE GLUCOSE (UA) NEGATIVE (NEGATIVE); URINE KETONE NEGATIVE (NEGATIVE); URINE LEUK ESTERASE 1+ (NEGATIVE); URINE NITRITE NEGATIVE (NEGATIVE); URINE PROTEIN NEGATIVE (NEGATIVE)
[2018-04-01 17:39] LABS: CALCIUM OXALATE CRYSTALS MODERATE /hpf (NONE SEEN); EPI CELLS MODERATE /HPF (FEW); URINE BACTERIA MANY /hpf (NONE SEEN); URINE MUCUS MANY
[2018-04-01 17:43] LABS: URIC ACID CRYSTALS NONE SEEN /hpf (NONE SEEN)
[2018-04-01] MEDS: THIAMINE HCL 100 MG TABLET (FP) PO SCH (21:30)
[2018-04-01] MEDS: P-EPHED 60MG/TRIPROLIDI 2.5MG TABLET PO PRN (21:31)
[2018-04-02] MEDS: P-EPHED 60MG/TRIPROLIDI 2.5MG TABLET PO PRN (07:26)
[2018-04-02] MEDS ORDERED: PT OWN MED DRAWER 7, Y5N ONE ×3 (08:49→21:21)
[2018-04-02] MEDS: hydrOXYzine PAMOATE 50 MG CAPSULE (FP) PO PRN (09:26)
[2018-04-02] MEDS: PRENATAL VITAMINS W/ FOLIC ACID TABLET (FP) PO SCH (09:26)
[2018-04-02] MEDS: NICOTINE 21 MG/24 HOURS TOPICAL PATCH TD SCH (09:26)
--- NOTE | 2018-04-02 09:51 | EKG ---
Test Reason : Blood Pressure : / mmHG Vent. Rate : 071 BPM Atrial Rate : 071 BPM P-R Int : 144 ms QRS Dur : 092 ms QT Int : 460 ms P-R-T Axes : 060 039 021 degrees QTc Int : 499 ms NORMAL SINUS RHYTHM MODERATE VOLTAGE CRITERIA FOR LVH, MAY BE NORMAL VARIANT T WAVE ABNORMALITY, CONSIDER ANTERIOR ISCHEMIA ABNORMAL ECG WHEN COMPARED WITH ECG OF 06-MAR-2018 15:22, T WAVE INVERSION NO LONGER EVIDENT IN INFERIOR LEADS T WAVE INVERSION LESS EVIDENT IN ANTEROLATERAL LEADS QT HAS LENGTHENED Confirmed by SUMIT ELIZALDE, PILLO ([id number]) on 04/02/2018 9:50:39 AM Referred By: Confirmed By:PILLO ARANA MD
--- NOTE | 2018-04-02 11:31 | HP ---
Psychiatrist Admission - Data Date of interview: 04/02/18 Admission source: [facility] Identifying data: This is the first admission to [address] [place] [address] for this 52 years old AA mother of 2 grown children, homeless,supported by PA. Medical History: H/O Craniotomy,BA,Anemia,HTN. Psychiatric History: Denies previous psychiatric history. Physical/Sexual Abuse/Trauma History: denies Vital Signs: Vital Signs - 24 hr 04/02/18 04/02/18 04/02/18 00:30 03:30 07:10 Temperature 97.8 F Pulse Rate 69 Respiratory 16 16 18 Rate Blood Pressure 153/80 04/02/18 10:00 Temperature Pulse Rate 83 Respiratory Rate Blood Pressure 148/78 Allergies/Adverse Reactions: Allergies Allergy/AdvReac Type Severity Reaction Status Date / Time No Known Allergies Allergy Verified 03/31/18 21:53 Date of last physical exam: 03/31/18 Concur with the findings of this exam: Yes - Substance Abuse/Tx History Hx Alcohol Use: Yes (reports drinking since 19 yo,beer 2 six packs) Hx Substance Use: Yes (cocaine since 19 yo,spending $100 daily) Substance Use Type: Alcohol, Cocaine Hx Substance Use Treatment: Yes (completed shelter 22 yo,longest abstinence 22 yo) Mental Status Exam - Mental Status Exam Alert and Oriented to: Time, Place, Person Cognitive Function: Grossly Intact Patient Appearance: Well Groomed Mood: Euthymic Affect: Appropriate, Mood Congruent, Normal Range Patient Behavior: Cooperative Speech Pattern: Clear Voice Loudness: Normal Thought Process: Goal Oriented Thought Disorder: Not Present Hallucinations: Denies Suicidal Ideation: Denies Homicidal Ideation: Denies Insight/Judgement: Fair Sleep: Fair Appetite: Good Muscle strength/Tone: Normal Gait/Station: Normal Psychiatric Findings - Problem List ([place] 1, 2,3) (1) Asthma Current Visit: Yes Status: Chronic Qualifiers: Asthma severity: unspecified severity Asthma persistence: intermittent Asthma complication type: uncomplicated Qualified Code(s): J45.20 - Mild intermittent asthma, uncomplicated (2) Cocaine dependence Current Visit: Yes Status: Chronic Qualifiers: Substance use status: uncomplicated Qualified Code(s): F14.20 - Cocaine dependence, uncomplicated (3) HTN (hypertension) Current Visit: Yes Status: Chronic Qualifiers: Hypertension type: essential hypertension Qualified Code(s): I10 - Essential (primary) hypertension (4) Marijuana dependence Current Visit: Yes Status: Chronic (5) Nicotine dependence Current Visit: Yes Status: Chronic Qualifiers: Nicotine product type: cigarettes Substance use status: in withdrawal Qualified Code(s): F17.213 - Nicotine dependence, cigarettes, with withdrawal (6) Uncomplicated alcohol dependence Current Visit: Yes Status: Chronic
[2018-04-02] MEDS ORDERED: ALBUTEROL SO4 8 GM HFA INHALER IH PRN (13:12)
[2018-04-02] MEDS ORDERED: ALBUTEROL SO4 0.083% IH SOL 2.5 MG/3 ML VIAL.NEB. NEB PRN (13:13)
--- NOTE | 2018-04-02 13:16 | PN ---
[facility] Progress Note Note: Vital Signs Temperature 97.8 F 04/02/18 07:10 Pulse Rate 83 04/02/18 10:00 Respiratory Rate 18 04/02/18 07:10 Blood Pressure 148/78 04/02/18 10:00 O2 Sat by Pulse Oximetry (%) Laboratory Last Values WBC 8.6 K/mm3 (4.0-10.0) 04/01/18 07:00 RBC 4.78 M/mm3 (3.60-5.2) 04/01/18 07:00 Hgb 13.0 GM/dL (10.7-15.3) 04/01/18 07:00 Hct 41.0 % (32.4-45.2) 04/01/18 07:00 MCV 85.7 fl (80-96) 04/01/18 07:00 MCH 27.3 pg (25.7-33.7) 04/01/18 07:00 MCHC 31.8 g/dl (32.0-36.0) L 04/01/18 07:00 RDW 13.7 % (11.6-15.6) 04/01/18 07:00 Plt Count 345 K/MM3 (134-434) 04/01/18 07:00 MPV 7.3 fl (7.5-11.1) L 04/01/18 07:00 Sodium 140 mmol/L (136-145) 04/01/18 07:00 Potassium 4.0 mmol/L (3.5-5.1) 04/01/18 07:00 Chloride 106 mmol/L (98-107) 04/01/18 07:00 Carbon Dioxide 29 mmol/L (21-32) 04/01/18 07:00 Anion Gap 5 MMOL/L (8-16) L 04/01/18 07:00 BUN 17 mg/dL (7-18) 04/01/18 07:00 Creatinine 0.7 mg/dL (0.55-1.3) 04/01/18 07:00 Creat Clearance w eGFR > 60 (>60) 04/01/18 07:00 Random Glucose 115 mg/dL (74-106) H 04/01/18 07:00 Calcium 9.0 mg/dL (8.5-10.1) 04/01/18 07:00 Total Bilirubin 0.3 mg/dL (0.2-1) 04/01/18 07:00 AST 21 U/L (15-37) 04/01/18 07:00 ALT 26 U/L (13-61) 04/01/18 07:00 Alkaline Phosphatase 115 U/L (45-117) 04/01/18 07:00 Total Protein 6.9 g/dl (6.4-8.2) 04/01/18 07:00 Albumin 3.3 g/dl (3.4-5.0) L 04/01/18 07:00 Urine Color Yellow 04/01/18 10:15 Urine Appearance Cloudy 04/01/18 10:15 Urine pH 5.0 (5.0-8.0) 04/01/18 10:15 Ur Specific [place] 1.024 (1.010-1.035) 04/01/18 10:15 Urine Protein Negative (NEGATIVE) 04/01/18 10:15 Urine Glucose (UA) Negative (NEGATIVE) 04/01/18 10:15 Urine Ketones Negative (NEGATIVE) 04/01/18 10:15 Urine Blood 2+ (NEGATIVE) H 04/01/18 10:15 Urine Nitrite Negative (NEGATIVE) 04/01/18 10:15 Urine Bilirubin Negative (<2.0 mg/dL) 04/01/18 10:15 Urine Urobilinogen 2.0 mg/dL (0.2-1.0) H 04/01/18 10:15 Ur Leukocyte Esterase 1+ (NEGATIVE) H D 04/01/18 10:15 Urine WBC (Auto) 73 /hpf (3-5) 04/01/18 10:15 Urine RBC (Auto) 169 /hpf (0-3) 04/01/18 10:15 Ur Epithelial Cells Moderate /HPF (FEW) 04/01/18 10:15 Calcium Oxalate Crystal Moderate /hpf (NONE SEEN) 04/01/18 10:15 Uric Acid Crystals None seen /hpf (NONE SEEN) 04/01/18 10:15 Urine Bacteria Many /hpf (NONE SEEN) 04/01/18 10:15 Urine Mucus Many 04/01/18 10:15 RPR Titer Nonreactive (NONREACTIVE) 04/01/18 07:00 c/o of cold symptoms re: cough hx of asthma uses ventolin out patient. AOX3 no distress wheezing skin intact, no cyanosis or erythema full ROM ambualting in the unit cough secondary to asthma home meds reviewed: ordered ventolin PRN Flonase qd PRN montelukast PRN DUONEB PRN repeat u/a increase fluids continue to monitor
[2018-04-02] MEDS: ALBUTEROL SO4 2.5/IPRATROPIUM 0.5 INH SOL 3 ML VIAL.NEB. NEB PRN (13:40)
--- NOTE | 2018-04-02 15:26 | PN ---
[facility] Progress Note Note: Vital Signs Temperature 97.8 F 04/02/18 07:10 Pulse Rate 83 04/02/18 10:00 Respiratory Rate 18 04/02/18 07:10 Blood Pressure 148/78 04/02/18 10:00 O2 Sat by Pulse Oximetry (%) Loperamide and vistaril d/c d/t risk for QT prolongation
[2018-04-02] MEDS: FLUTICASONE PROP 0.05% 16 GM NASAL SPRAY NS SCH (16:30)
[2018-04-02] MEDS: MONTELUKAST NA 10 MG TABLET PO SCH (21:21)
[2018-04-02] MEDS: MELATONIN 5 MG TABLETS PO PRN (21:22)
[2018-04-02] MEDS: THIAMINE HCL 100 MG TABLET (FP) PO SCH (21:22)
[2018-04-03] MEDS: ALBUTEROL SO4 2.5/IPRATROPIUM 0.5 INH SOL 3 ML VIAL.NEB. NEB PRN (03:15)
[2018-04-03] MEDS: PRENATAL VITAMINS W/ FOLIC ACID TABLET (FP) PO SCH (09:49)
[2018-04-03] MEDS: FLUTICASONE PROP 0.05% 16 GM NASAL SPRAY NS SCH (09:50)
[2018-04-03] MEDS: NICOTINE 21 MG/24 HOURS TOPICAL PATCH TD SCH (09:51)
[2018-04-03 10:16] LABS: URINE APPEARANCE SLCLOUDY; URINE BILIRUBIN NEGATIVE (<2.0 mg/dL); URINE COLOR LTYELLOW; URINE GLUCOSE (UA) NEGATIVE (NEGATIVE); URINE KETONE NEGATIVE (NEGATIVE); URINE LEUK ESTERASE 1+ (NEGATIVE); URINE NITRITE NEGATIVE (NEGATIVE); URINE PROTEIN NEGATIVE (NEGATIVE); URINE UROBILINOGEN NEGATIVE mg/dL (0.2-1.0)
[2018-04-03 10:57] LABS: EPI CELLS FEW /HPF (FEW)
[2018-04-03] MEDS ORDERED: PT OWN MED DRAWER 7, Y5N ONE (15:33)
[2018-04-03] MEDS: THIAMINE HCL 100 MG TABLET (FP) PO SCH (21:05)
[2018-04-03] MEDS: MONTELUKAST NA 10 MG TABLET PO SCH (21:05)
[2018-04-03] MEDS: MELATONIN 5 MG TABLETS PO PRN (21:06)
[2018-04-04 08:28] VITALS: BP 165/84; PULSE 67; TEMP 97.2
--- NOTE | 2018-04-04 09:02 | PN ---
S Progress Note (SOAP) Subjective: PT IS A 52 Y/O FEMALE WITH A HX OF ALCOHOL,COCAINE AND MARIJUANA USE ADMITTED HERE FOR REHAB TREATMENT. PT WAS ALSO DETOXED HERE ON 03/06/18 TO 03/10/18. PT AND STAFF STATE WHILE SHE WAS EATING BREAKFAST THIS MORNING SHE C/O LEFT CHEST PAIN RADIATING TO SHOULDER AND UPPER ARM WITH SOB. PT STATES FUNNY FEELING TO THE LEFT ARM AND TRYING TO CATCH HER BREATH INTERMITTENTLY. PT HAS A HX OF ASTHMA AND HTN. NO KNOWN MEDS FOR HTN BUT ON SINGULAIR, ALBUTEROL INHALER AND DUONEB PRN. Objective: 04/04/18 09:00 Vital Signs 04/04/18 04/04/18 04/04/18 03:30 06:52 08:20 Temperature 98.0 F 97.2 F L Pulse Rate 73 67 Respiratory 16 16 19 Rate Blood Pressure 148/80 165/84 O2 Sat by Pulse 99 Oximetry (%) Laboratory Tests 04/01/18 04/01/18 04/01/18 07:00 07:00 07:00 WBC 8.6 RBC 4.78 Hgb 13.0 Hct 41.0 MCV 85.7 MCH 27.3 MCHC 31.8 L RDW 13.7 Plt Count 345 MPV 7.3 L Sodium 140 Potassium 4.0 Chloride 106 Carbon Dioxide 29 Anion Gap 5 L BUN 17 Creatinine 0.7 Creat Clearance w eGFR > 60 Random Glucose 115 H Calcium 9.0 Total Bilirubin 0.3 AST 21 ALT 26 Alkaline Phosphatase 115 Total Protein 6.9 Albumin 3.3 L Urine Color Urine Appearance Urine pH Ur Specific [place] Urine Protein Urine Glucose (UA) Urine Ketones Urine Blood Urine Nitrite Urine Bilirubin Urine Urobilinogen Ur Leukocyte Esterase Urine WBC (Auto) Urine RBC (Auto) Ur Epithelial Cells Calcium Oxalate Crystal Uric Acid Crystals Urine Bacteria Urine Mucus RPR Titer Nonreactive 04/01/18 04/03/18 10:15 07:00 WBC RBC Hgb Hct MCV MCH MCHC RDW Plt Count MPV Sodium Potassium Chloride Carbon Dioxide Anion Gap BUN Creatinine Creat Clearance w eGFR Random Glucose Calcium Total Bilirubin AST ALT Alkaline Phosphatase Total Protein Albumin Urine Color Yellow Ltyellow Urine Appearance Cloudy Slcloudy Urine pH 5.0 6.0 Ur Specific [place] 1.024 1.010 Urine Protein Negative Negative Urine Glucose (UA) Negative Negative Urine Ketones Negative Negative Urine Blood 2+ H 1+ H Urine Nitrite Negative Negative Urine Bilirubin Negative Negative Urine Urobilinogen 2.0 H Negative Ur Leukocyte Esterase 1+ H D 1+ H Urine WBC (Auto) 73 7 Urine RBC (Auto) 169 1 Ur Epithelial Cells Moderate Few Calcium Oxalate Crystal Moderate Uric Acid Crystals None seen Urine Bacteria Many Urine Mucus Many RPR Titer EKG:NSR MODERATE VOLTAGE CRITERIA FOR LVH NONSPECIFIC T WAVE ABNORMALITY PROLONGED QT ABNORMAL ECG PULSE OX: 99% ROOM AIR Assessment: 04/04/18 09:01 CHEST PAIN Plan: TRANSFER TO [facility] FOR FURTHER EVALUATION AND POSSIBLE TREATMENT. PT MAY RETURN TO CONTINUE REHAB AFTER MEDICAL CLEARANCE. REPORT G[facility]Z [facility] WHO [facility]EPT[facility] THIS PATIENTS CASE.
[2018-04-04] MEDS ORDERED: cloNIDine HCL 0.1 MG TABLET PO ONE (09:21)
[2018-04-04] MEDS: FLUTICASONE PROP 0.05% 16 GM NASAL SPRAY NS SCH (10:59)
[2018-04-04] MEDS: PRENATAL VITAMINS W/ FOLIC ACID TABLET (FP) PO SCH (11:00)
[2018-04-04] MEDS: NICOTINE 21 MG/24 HOURS TOPICAL PATCH TD SCH (11:00)
--- NOTE | 2018-04-04 15:37 | PN ---
[facility] Progress Note Note: PT WILL BE ADMITTED AT [facility] PER NURSE MARLENE WHO SPOKE TO STAFF AT [facility] ER. REASON:CHEST PAIN.
--- NOTE | 2018-04-05 10:37 | EKG ---
Test Reason : Blood Pressure : / mmHG Vent. Rate : 068 BPM Atrial Rate : 068 BPM P-R Int : 148 ms QRS Dur : 096 ms QT Int : 436 ms P-R-T Axes : 046 027 004 degrees QTc Int : 463 ms NORMAL SINUS RHYTHM VOLTAGE CRITERIA FOR LEFT VENTRICULAR HYPERTROPHY CANNOT RULE OUT SEPTAL INFARCT (CITED ON OR BEFORE 01-APR-2018) ABNORMAL ECG WHEN COMPARED WITH ECG OF 01-APR-2018 09:39, NONSPECIFIC T WAVE ABNORMALITY NO LONGER EVIDENT IN ANTERIOR LEADS Confirmed by KEVYN SANTAMARIA MD ([id number]) on 04/05/2018 10:37:10 AM Referred By: Confirmed By:KEVYN SANTAMARIA MD
== END 2018-04-04 15:35 | disposition short-term general hospital (02) | DRG 772 ==
LOC: YASAS 19:12 → Y3E 21:49
PROVIDERS: ADMIT Psychiatry & Neurology Psychiatry; ATTEND Psychiatry & Neurology Psychiatry
PROC: HZ42ZZZ Group Counseling for Substance Abuse Treatment, Cognitive-Behavioral (ICD-10-PCS; principal; 2018-03-31)
DX: F10.20 Alcohol dependence, uncomplicated (principal); F14.20 Cocaine dependence, uncomplicated; F12.20 Cannabis dependence, uncomplicated; F17.213 Nicotine dependence, cigarettes, with withdrawal; F32.9 Major depressive disorder, single episode, unspecified; F41.9 Anxiety disorder, unspecified; J45.20 Mild intermittent asthma, uncomplicated; I10 Essential (primary) hypertension; R07.9 Chest pain, unspecified; I45.81 Long QT syndrome; R94.31 Abnormal electrocardiogram [ECG] [EKG]
CPT/HCPCS: 36415; 80053; 81003; 81015; 85027; 86593; 93005; 93010; 94640; J7620

== ENCOUNTER 2018-04-04 09:50 | Observation (INO) | payer OTHER ==
[2018-04-04 10:01] VITALS: BMI 25.8
[2018-04-04] MEDS ORDERED: ASPIRIN 81 MG CHEWABLE TABLETS PO ONE (10:46)
[2018-04-04] MEDS ORDERED: ASPIRIN 325 MG TABLET ONE (10:47)
--- NOTE | 2018-04-04 10:55 | PDOC ---
History of Present Illness - General History Source: Patient Exam Limitations: No Limitations - History of Present Illness Initial Comments: 04/04/18 11:04 The patient is a 52-year-old female with past medical history significant for asthma, anemia, Chiari malformation s/p craniotomy (4 years ago) and HTN presents to the emergency department with chest pain. The patient presents chest tightness that radiates to the left arm since earlier today. The patient reports associated symptoms of shortness of breath and palpitations. The patient presents from [facility], where she is seeking detox for cocaine use since Saturday (03/31/2018). The patient reports she was sober for 28 years and about a month prior she relapsed. Denies prior similar pain, fever, chills, leg swelling, calf pain. Denies family history of cardiac issues. Denies dysuria, hematuria, frequency or urgency to urinate. Allergies: NKA Social history: The patient reports her last alcohol use was over the weekend. The patient reports last tobacco use was over a month ago. Surgical history: DNC and craniotomy PCP: None reported Neurologist: Dr. Yogi Nettles <Nallely Hayes - Last Filed: 04/04/18 11:04> - General History Source: Patient Exam Limitations: No Limitations <Rachael Yeung - Last Filed: 04/04/18 16:17> - General Chief Complaint: Chest Pain Stated Complaint: CHEST PAIN Time Seen by Provider: 04/04/18 10:07 Past History <Nallely Hayes - Last Filed: 04/04/18 11:04> - Past Medical History Anemia: Yes (Not on medication) Asthma: Yes (MDI) Cancer: No Cardiac Disorders: No CVA: No COPD: No CHF: No Dementia: No Diabetes: No GI Disorders: No Disorders: No HTN: Yes (Not on medication) Hypercholesterolemia: No Kidney Stones: No Liver Disease: No Seizures: No Thyroid Disease: No - Surgical History Abdominal Surgery: No Appendectomy: No Cardiac Surgery: No Cholecystectomy: No Lung Surgery: No Neurologic Surgery: Yes (craniotomy) Orthopedic Surgery: No - Reproductive History PID: No - Suicide/Smoking/Psychosocial Hx Smoking History: Former smoker Have you smoked in the past 12 months: No Number of Cigarettes Smoked Daily: 10 Information on smoking cessation initiated: No 'Breaking Loose' booklet given: 03/31/18 Hx Alcohol Use: Yes Drug/Substance Use Hx: Yes Substance Use Type: Alcohol, Cocaine Hx Substance Use Treatment: Yes (completed [facility] 22 yo,longest abstinence 20 yo) <Rachael Yeung - Last Filed: 04/04/18 16:17> - Past Medical History Allergies/Adverse Reactions: Allergies Allergy/AdvReac Type Severity Reaction Status Date / Time No Known Allergies Allergy Verified 03/31/18 21:53 Home Medications: Ambulatory Orders Albuterol Sulfate Inhaler - [Ventolin HFA Inhaler -] 2 inh PO Q4H PRN #1 inhaler 03/09/18 Review of Systems - Review of Systems Able to Perform ROS?: Yes Comments:: 04/04/18 11:05 GENERAL/CONSTITUTIONAL: No fever or chills. No weakness. HEAD, EYES, EARS, NOSE AND THROAT: No change in vision. No ear pain or discharge. No sore throat. CARDIOVASCULAR: (+)chest pain with radiation to the left arm and shortness of breath. (+) Palpitations. RESPIRATORY: No cough, wheezing, or hemoptysis. GASTROINTESTINAL: No nausea, vomiting, diarrhea or constipation. GENITOURINARY: No dysuria, frequency, or change in urination. MUSCULOSKELETAL: No joint or muscle swelling or pain. No neck or back pain. SKIN: No rash NEUROLOGIC: No headache, vertigo, loss of consciousness, or change in strength/ sensation. ENDOCRINE: No increased thirst. No abnormal weight change. HEMATOLOGIC/LYMPHATIC: No anemia, easy bleeding, or history of blood clots. ALLERGIC/IMMUNOLOGIC: No hives or skin allergy. <Nallely Hayes - Last Filed: 04/04/18 11:04> *Physical Exam - Vital Signs Last Vital Signs Temp Pulse Resp BP Pulse Ox 98.6 F 69 18 148/79 100 04/04/18 09:54 04/04/18 09:54 04/04/18 09:54 04/04/18 09:54 04/04/18 09:54 - Physical Exam Comments: 04/04/18 11:06 GENERAL: Awake, alert, and fully oriented, in no acute distress HEAD: No signs of trauma EYES: PERRLA, EOMI, sclera anicteric, conjunctiva clear ENT: Auricles normal inspection, hearing grossly normal, nares patent, oropharynx clear without exudates. Moist mucosa NECK: Normal ROM, supple, no lymphadenopathy, JVD, or masses LUNGS: Breath sounds equal, clear to auscultation bilaterally. No wheezes, and no crackles HEART: Regular rate and rhythm, normal S1 and S2, no murmurs, rubs or gallops ABDOMEN: Soft, nontender, normoactive bowel sounds. No guarding, no rebound. No masses EXTREMITIES: Normal range of motion, no edema. No clubbing or cyanosis. No cords, erythema, or tenderness NEUROLOGICAL: Cranial nerves II through XII grossly intact. Normal speech, normal gait SKIN: Warm, Dry, normal turgor, no rashes or lesions noted. <Nallely Hayes - Last Filed: 04/04/18 11:04> - Vital Signs Last Vital Signs Temp Pulse Resp BP Pulse Ox 98.6 F 69 18 148/79 100 04/04/18 09:54 04/04/18 09:54 04/04/18 09:54 04/04/18 09:54 04/04/18 09:54 <Rachael Yeung - Last Filed: 04/04/18 16:17> Heart Score/ECG Review - History History: Moderately suspicious - Electrocardiogram EKG: Non specific repolarization disturbance - Age Age: 45-65 - Risk Factors Risk Factors Heart Score: Yes Hx Hypertension, Yes Smoking History Based on the list above the patient has:: 1-2 risk factors - Troponin Troponin: </= normal limit - Score Heart Score - Total: 4 #1 ECG reviewed & interpreted by me at: 10:48 General ECG Interpretation: Sinus Rhythm, Normal Rate (68), Normal Intervals, No acute ischemic changes (TWI III only.) #2 General ECG Interpretation: Sinus Rhythm, Normal Rate (62), Normal Intervals, No acute ischemic changes Compared to previous ECG there are: No significant change <Rachael Yeung - Last Filed: 04/04/18 16:17> ED Treatment Course - LABORATORY CBC & Chemistry Diagram: 04/04/18 10:47 04/04/18 10:47 - ADDITIONAL ORDERS Additional order review: 04/04/18 10:47 RBC 4.34 MCV 84.8 MCHC 32.0 RDW 14.3 MPV 6.9 L Neutrophils % 43.1 Lymphocytes % 34.0 Monocytes % 13.1 H Eosinophils % 8.3 H Basophils % 1.5 - Medications Given in the ED: ED Medications Discontinued Medications Generic Name Dose Route Start Last Admin Trade Name Emi PRN Reason Stop Dose Admin Aspirin 324 mg 04/04/18 10:46 04/04/18 10:52 Asa - PO 04/04/18 10:47 324 mg ONCE ONE Administration <Nallely Hayes - Last Filed: 04/04/18 11:04> - LABORATORY CBC & Chemistry Diagram: 04/04/18 10:47 04/04/18 13:09 - RADIOLOGY Radiology Studies Ordered: Category Date Time Status CHEST PA & LAT [RAD] Stat Radiology 04/04/18 10:47 Ordered <Rachael Yeung - Last Filed: 04/04/18 16:17> Medical Decision Making - Medical Decision Making 04/04/18 10:52 52 yo F h/o cocaine abuse , anemia, asthma and htn, here with c/o chest pain from [facility]. has been in detox for 5 days. describes chest tightness, radiating to left arm, sob, and palpitations. started today. no family h/o cad. had been using cocaine for one month. last use was 20 days prior to rehab. no f /c nop cough no h/o pe or dvt. no leg swelling. exam awake alert nad, lungs clear bilaterally. heart rrr no mrg. abd soft nt nd. ext wwp no edema. no calf tenderness. nuero alert oriented x 3, moves all ext. facies symmetric. differential pna, acs, gerd, no risk factors for pe. plan ekg cxr asa, labs. due to risk factor of long standing cocaine use and htn, consider obs on tele. pt has no pcp. no followup. 04/04/18 15:54 pt with mass on xray and ct suspicious for malignancy. pain resolved with nitroglycerin. will admit tele , workup and acs rule out. 04/04/18 16:16 pt rpt ekg unchanges. d/w admitting conditioning coach, will admit to dr cornejo <Rachael Yeung - Last Filed: 04/04/18 16:17> *DC/Admit/Observation/Transfer - Attestations Scribe Attestion: 04/04/18 11:06 Documentation prepared by Nallely Hayes, acting as medical data analyst for Rachael Yeung MD. <Nallely Hayes - Last Filed: 04/04/18 11:04> - Discharge Dispostion Decision to Admit order: Yes <Rachael Yeung - Last Filed: 04/04/18 16:17> Diagnosis at time of Disposition: Chest pain, Lung mass
[2018-04-04 10:58] LABS: BASO % 1.5 % (0-2.0); EOS % 8.3 % (0-4.5); HEMATOCRIT 36.8 % (32.4-45.2); HEMOGLOBIN 11.8 GM/dL (10.7-15.3); MCH 27.2 pg (25.7-33.7); MEAN CELL VOLUME 84.8 fl (80-96); MEAN PLT VOLUME 6.9 fl (7.5-11.1); MONO % 13.1 % (3.8-10.2); NEUT % 43.1 % (42.8-82.8); PLATELET COUNT 306 K/MM3 (134-434); RBC 4.34 M/mm3 (3.60-5.2); RDW 14.3 % (11.6-15.6); WHITE BLOOD COUNT 7.3 K/mm3 (4.0-10.0)
[2018-04-04] MEDS ORDERED: NITROGLYCERIN SUBLINGUAL 1/150 0.4 MG TAB SL ONE ×2 (11:18→14:52)
[2018-04-04 13:48] LABS: ALBUMIN 3.2 g/dl (3.4-5.0); ALK PHOS 110 U/L (45-117); ANION GAP 5 MMOL/L (8-16); BILIRUBIN,TOTAL 0.2 mg/dL (0.2-1); BLOOD UREA NITROGEN 14 mg/dL (7-18); CALCIUM 8.7 mg/dL (8.5-10.1); CHLORIDE 110 mmol/L (98-107); CO2 27 mmol/L (21-32); CREATININE 0.5 mg/dL (0.55-1.3); GLUCOSE,RANDOM 81 mg/dL (74-106); POTASSIUM 4.5 mmol/L (3.5-5.1); SGOT/AST 17 U/L (15-37); SGPT/ALT 22 U/L (13-61); SODIUM 143 mmol/L (136-145); TOT PROT 6.8 g/dl (6.4-8.2)
[2018-04-04] MEDS ORDERED: NITROGLYCERIN 2% OINTMENT - 1GM PACKET TD ONE (14:54)
--- NOTE | 2018-04-04 17:07 | CON.CARD ---
Consult Consult Specialty:: Cardiology Reason for Consultation:: Chest pain - History of Present Illness Chief Complaint: Chest pain History of Present Illness: 52 f with a pMH of asthma, anemia, Chiari malformation s/p craniotomy (4 years ago) and HTN. She was at [facility] to detox from cocaine, last use october be 03/31. She developed chest pain which she described as a pressure, radiating down her left arm, associated with SOB. BP 175/90 mmHg. EKG without changes. Troponin pending. Now chest pain free - Alcohol/Substance Use Hx Alcohol Use: Yes - Smoking History Smoking history: Former smoker Have you smoked in the past 12 months: No Aproximately how many cigarettes per day: 10 Home Medications - Allergies Allergies/Adverse Reactions: Allergies Allergy/AdvReac Type Severity Reaction Status Date / Time No Known Allergies Allergy Verified 03/31/18 21:53 - Home Medications Home Medications: Ambulatory Orders Albuterol Sulfate Inhaler - [Ventolin HFA Inhaler -] 2 inh PO Q4H PRN #1 inhaler 03/09/18 Family Disease History - Family Disease History Family Disease History: CA: Mother (BONE CANCER) Vital Signs: Vital Signs Temperature 98.6 F 04/04/18 09:54 Pulse Rate 69 04/04/18 09:54 Respiratory Rate 18 04/04/18 09:54 Blood Pressure 176/95 H 04/04/18 11:18 O2 Sat by Pulse Oximetry (%) 100 04/04/18 09:54 Constitutional: Yes: No Distress Eyes: Yes: WNL HENT: Yes: WNL Neck: Yes: WNL Respiratory: Yes: CTA Bilaterally Gastrointestinal: Yes: Normal Bowel Sounds, Soft Cardiovascular: Yes: Regular Rate and Rhythm (NL S1S2, No MRHG) JVD: No Extremities: Yes: WNL Edema: No Neurological: Yes: Alert, Oriented - Other Data Labs, Other Data: CBC, BMP 04/04/18 10:47 04/04/18 13:09 Troponin, BNP 04/04/18 10:47 Troponin I Cancelled Troponin, BNP 04/04/18 10:47 Troponin I Cancelled Assessment/Plan 52 f with a pMH of asthma, anemia, Chiari malformation s/p craniotomy (4 years ago) and HTN. She was at [facility] to detox from cocaine, last use october be 03/31. She developed chest pain which she described as a pressure, radiating down her left arm, associated with SOB. BP 175/90 mmHg. EKG without changes. Troponin pending. Chest Pain Obtain a UTox Check troponin x 3 sets No Beta blockers secondary to asthma and possible cocaine use Continue aspirin 81 mg Agree with NTP for chest pain Obtain echocardiogram Would rule out a PE HTN Would start amlodipine 5 mg daily Lung Mass Hx of smoking Suspicious for malignancy Evaluation in progress Will follow
--- NOTE | 2018-04-04 17:12 | HP ---
CHIEF COMPLAINT: Chest Pain PCP: None HISTORY OF PRESENT ILLNESS: 52 year old female with a significant PMH of HTN, Chiari malformation 4 years s/ p craniotomy, asthma, anemia and polysubstance abuse (etoh, crack, marijuana). Presented to the emergency department from [facility] c/o chest pain. Patient reports that starting at 8 AM while eating breakfast, she experienced chest tightness with numbness that radiated down her left arm with SOB. In the ED, patient was given 2 doses of nitro and one dose of Asa 325 mg to good effect; she reports chest pain has since resolved. Patient denies fever, sweats, and chills. Denies n/v/d. Denies palpitations, SQUIRES, orthopnea, b/l lower extremity edema. ED course notable for: 1. BP 176/95 2. ECG not indicative of an acute ischemic event 3. Troponin #[address]: 2 cm nodule in the SAKSHI, highly suspicious for malignancy 5. Urine tox positive cocaine Recent Travel: No PAST MEDICAL HISTORY: HTN, Chiari malformation 4 years s/p craniotomy, asthma, anemia PAST SURGICAL HISTORY: Craniotomy - 4 years ago Social History: Smoking: Quit one month ago after a 30 pack year history Alcohol: Occasional, last use over the weekend Drugs: Cocaine Family History: Homeless with 2 grown children. Mother - Breast cancer with bone mets Allergies No Known Allergies Allergy (Verified 03/31/18 21:53) HOME MEDICATIONS: Home Medications Medication Instructions Recorded Albuterol Sulfate Inhaler - 2 inh PO Q4H PRN #1 inhaler 03/09/18 [Ventolin HFA Inhaler -] REVIEW OF SYSTEMS CONSTITUTIONAL: Absent: fever, chills, diaphoresis, generalized weakness, malaise, loss of appetite, weight change HEENT: Absent: rhinorrhea, nasal congestion, throat pain, throat swelling, difficulty swallowing, mouth swelling, ear pain, eye pain, visual changes CARDIOVASCULAR: Present: +chest pain, SOB Absent: syncope, palpitations, irregular heart rate, lightheadedness, peripheral edema RESPIRATORY: Intermittent dry cough Absent: Dyspnea with exertion, orthopnea, wheezing, stridor, hemoptysis GASTROINTESTINAL: Absent: abdominal pain, abdominal distension, nausea, vomiting, diarrhea, constipation, melena, hematochezia GENITOURINARY: Absent: dysuria, frequency, urgency, hesitancy, hematuria, flank pain, genital pain MUSCULOSKELETAL: Absent: myalgia, arthralgia, joint swelling, back pain, neck pain SKIN: Absent: rash, itching, pallor HEMATOLOGIC/IMMUNOLOGIC: Absent: easy bleeding, easy bruising, lymphadenopathy, frequent infections ENDOCRINE: Absent: unexplained weight gain, unexplained weight loss, heat intolerance, cold intolerance NEUROLOGIC: Absent: headache, focal weakness or paresthesias, dizziness, unsteady gait, seizure, mental status changes, bladder or bowel incontinence PSYCHIATRIC: Present: anxiety, depression, cocaine addiction Absent: suicidal or homicidal ideation, hallucinations. PHYSICAL EXAMINATION Vital Signs - 24 hr 04/04/18 04/04/18 09:54 11:18 Temperature 98.6 F Pulse Rate 69 Respiratory 18 Rate Blood Pressure 148/79 Blood Pressure 176/95 H [Left Arm] Blood Pressure 175/90 H [Right Arm] O2 Sat by Pulse 100 Oximetry (%) GENERAL: Awake, alert, and fully oriented, tearful, in no acute distress. HEAD: Normal with no signs of trauma. EYES: Pupils equal, round and reactive to light, extraocular movements intact, sclera anicteric, conjunctiva clear. No lid lag. EARS, NOSE, THROAT: Ears normal, nares patent, upper dentures, oropharynx clear without exudates. Moist mucous membranes. NECK: Normal range of motion, supple without lymphadenopathy, JVD, or masses. LUNGS: Fine basilar crackles to LLL, no wheezes. No accessory muscle use. HEART: Regular rate and rhythm, normal S1 and S2 without murmur, rub or gallop. ABDOMEN: Soft, nontender, not distended, normoactive bowel sounds, no guarding, no rebound, no masses. No hepatomegaly or splenomegaly. MUSCULOSKELETAL: Normal range of motion at all joints. No bony deformities or tenderness. No CVA tenderness. UPPER EXTREMITIES: 2+ pulses, warm, well-perfused. No cyanosis. No clubbing. No peripheral edema. LOWER EXTREMITIES: 2+ pulses, warm, well-perfused. No calf tenderness. No peripheral edema. NEUROLOGICAL: Cranial nerves II-XII intact. Normal speech. PSYCHIATRIC: Cooperative. Good eye contact. Appropriate mood and affect. SKIN: Warm, dry, normal turgor, normal capillary refill. Laboratory Results - last 24 hr 10/12/18 10/12/18 10/12/18 10:47 10:47 13:09 WBC 7.3 RBC 4.34 Hgb 11.8 Hct 36.8 MCV 84.8 MCH 27.2 MCHC 32.0 RDW 14.3 Plt Count 306 MPV 6.9 L Absolute Neuts (auto) 3.1 Neutrophils % 43.1 Lymphocytes % 34.0 Monocytes % 13.1 H Eosinophils % 8.3 H Basophils % 1.5 Nucleated RBC % 0 Sodium Cancelled 143 Potassium Cancelled 4.5 Chloride Cancelled 110 H Carbon Dioxide Cancelled 27 Anion Gap Cancelled 5 L BUN Cancelled 14 Creatinine Cancelled 0.5 L Creat Clearance w eGFR Cancelled > 60 Random Glucose Cancelled 81 Calcium Cancelled 8.7 Total Bilirubin Cancelled 0.2 AST Cancelled 17 ALT Cancelled 22 Alkaline Phosphatase Cancelled 110 Creatine Kinase Cancelled Troponin I Cancelled Total Protein Cancelled 6.8 Albumin Cancelled 3.2 L 04/04/18 13:09 WBC RBC Hgb Hct MCV MCH MCHC RDW Plt Count MPV Absolute Neuts (auto) Neutrophils % Lymphocytes % Monocytes % Eosinophils % Basophils % Nucleated RBC % Sodium Potassium Chloride Carbon Dioxide Anion Gap BUN Creatinine Creat Clearance w eGFR Random Glucose Calcium Total Bilirubin AST ALT Alkaline Phosphatase Creatine Kinase 70 Troponin I < 0.02 Total Protein Albumin Chest X-ray 2 cm nodular opacity/nodule in the left upper lobe. Chest CT 2.1 cm nodule in the superior segment of the left lower lobe with a slightly spiculated margin that is highly suspicious for malignancy. ASSESSMENT/PLAN: 52 year old female with a PMH significant for HTN, Chiari malformation 4 years s /p craniotomy, asthma, anemia and polysubstance abuse (etoh, crack, marijuana). Admitted for chest pain. Chest Pain --In the setting of cocaine use, urine toxicology positive --R/o ACS. Trop #1 negative, #2 pending --ECG not indicative of acute ischemic event --CXR remarkable for 2 cm SAKSHI nodule, must be considered as possible source of chest pain --Considered PE, low risk for PE on Wells' Score, no further work up indicated at this time --Low suspicion for GI etiology --Echocardiogram --Serial ECGs --Telemetry monitoring --Continue ASA 81 mg --Seen by regulated program manager Dr. Andrew Childress HTN --Not currently on any home medications --Start Amplodipine 5 mg PO qday as per regulated program manager Dr. Childress Lung Mass --30 pack year smoking history --CXR and CT suspicious for malignancy --Further workup when more stable FEN --PO intake adequate --Electrolytes replete as indicated --Low sodium diet DVT Prophylaxis --Sq Heparin Dispo: pt currently requires further inpatient care. FULL CODE Visit type - Emergency Visit Emergency Visit: Yes ED Registration Date: 04/04/18 Care time: The patient presented to the Emergency Department on the above date and was hospitalized for further evaluation of their emergent condition. - New Patient This patient is new to me today: Yes Date on this admission: 04/04/18 - Critical Care Critical Care patient: No
[2018-04-04 18:23] LABS: METHADONE, UR NEGATIVE ng/ml (CUTOFF=300); OPIATES, URI NEGATIVE ng/ml (CUTOFF=300); PHENCYCLIDINE,URINE NEGATIVE ng/ml (CUTOFF=25); URINE AMPHETAMINES NEGATIVE ng/ml (CUTOFF=500); URINE BARBITURATES NEGATIVE ng/ml (CUTOFF=200); URINE BENZODIAZEPINES NEGATIVE ng/ml (CUTOFF=200)
[2018-04-04 18:35] LABS: COCAINE, UR POSITIVE ng/ml (CUTOFF=300)
[2018-04-04] MEDS: ACETAMINOPHEN 325 MG TABLET (FP) PO PRN (18:53)
[2018-04-04 21:03] LABS: URINE APPEARANCE SLCLOUDY; URINE BILIRUBIN NEGATIVE (<2.0 mg/dL); URINE COLOR LTYELLOW; URINE GLUCOSE (UA) NEGATIVE (NEGATIVE); URINE KETONE NEGATIVE (NEGATIVE); URINE LEUK ESTERASE TRACE (NEGATIVE); URINE NITRITE NEGATIVE (NEGATIVE); URINE PROTEIN NEGATIVE (NEGATIVE); URINE UROBILINOGEN NEGATIVE mg/dL (0.2-1.0)
[2018-04-04 21:11] LABS: EPI CELLS MODERATE /HPF (FEW); URINE MUCUS RARE
[2018-04-04] MEDS ORDERED: MELATONIN 5 MG TABLETS PO ONE (21:27)
[2018-04-05] MEDS: ASPIRIN 81 MG CHEWABLE TABLETS PO SCH (09:02)
[2018-04-05] MEDS ORDERED: amLODIPine BESYLATE 5 MG TABLET (FP) PO SCH (10:00)
--- NOTE | 2018-04-05 10:30 | EKG ---
Test Reason : Blood Pressure : / mmHG Vent. Rate : 062 BPM Atrial Rate : 062 BPM P-R Int : 142 ms QRS Dur : 092 ms QT Int : 450 ms P-R-T Axes : 051 016 -04 degrees QTc Int : 456 ms NORMAL SINUS RHYTHM POSSIBLE LEFT ATRIAL ENLARGEMENT LEFT VENTRICULAR HYPERTROPHY NONSPECIFIC T WAVE ABNORMALITY ABNORMAL ECG WHEN COMPARED WITH ECG OF 04-APR-2018 10:08, NO SIGNIFICANT CHANGE WAS FOUND Confirmed by KEVYN SANTAMARIA MD ([id number]) on 04/05/2018 10:30:27 AM Referred By: Confirmed By:KEVYN SANTAMARIA MD
[2018-04-05 13:11] LABS: BASO % 1.2 % (0-2.0); EOS % 6.4 % (0-4.5); HEMATOCRIT 36.6 % (32.4-45.2); HEMOGLOBIN 12.2 GM/dL (10.7-15.3); LYMPH % 35.4 % (8-40); MCH 27.9 pg (25.7-33.7); MCHC 33.2 g/dl (32.0-36.0); MEAN CELL VOLUME 84.1 fl (80-96); MEAN PLT VOLUME 6.5 fl (7.5-11.1); PLATELET COUNT 319 K/MM3 (134-434); RBC 4.36 M/mm3 (3.60-5.2); WHITE BLOOD COUNT 7.5 K/mm3 (4.0-10.0)
[2018-04-05 13:58] LABS: INR 0.99 (0.83-1.09); PROTHROMBIN TIME (PATIENT) 11.7 SEC (9.7-13.0)
[2018-04-05 14:01] LABS: ACTIVATED PTT 32.1 SECONDS (25.2-36.5)
[2018-04-05 14:02] LABS: ANION GAP 6 MMOL/L (8-16); BLOOD UREA NITROGEN 19 mg/dL (7-18); CALCIUM 8.7 mg/dL (8.5-10.1); CHLORIDE 106 mmol/L (98-107); CO2 26 mmol/L (21-32); CREATININE 0.8 mg/dL (0.55-1.3); GLUCOSE,RANDOM 102 mg/dL (74-106); POTASSIUM 4.4 mmol/L (3.5-5.1); SODIUM 139 mmol/L (136-145)
--- NOTE | 2018-04-05 15:19 | PN ---
Progress Note, Physician History of Present Illness: seen and examined today in [facility]. no overnight events. no new complaints. no further chest pain. - Current Medication List Current Medications: Active Medications Acetaminophen (Tylenol -) 650 mg PO Q6H PRN PRN Reason: PAIN LEVEL 1-5 Last Admin: 04/04/18 18:53 Dose: 650 mg Amlodipine Besylate (Norvasc -) 5 mg PO DAILY [facility] Last Admin: 04/05/18 09:02 Dose: 5 mg Aspirin (Asa -) 81 mg PO DAILY [facility] Last Admin: 04/05/18 09:02 Dose: 81 mg - Objective Vital Signs: Vital Signs Temperature 97.8 F 04/05/18 14:00 Pulse Rate 69 04/05/18 14:00 Respiratory Rate 18 04/05/18 11:00 Blood Pressure 154/89 04/05/18 14:00 O2 Sat by Pulse Oximetry (%) 100 04/05/18 08:47 Constitutional: Yes: Well Nourished, No Distress, Calm Eyes: Yes: Conjunctiva Clear, EOM Intact HENT: Yes: Atraumatic, Normocephalic Neck: Yes: Supple, Trachea Midline Cardiovascular: Yes: Regular Rate and Rhythm, S1, S2. No: Bradycardia, Tachycardia, Pulse Irregular, Bruit, JVD, Gallop, Murmur, Rub, S3, S4, Varicosities Respiratory: Yes: Regular, CTA Bilaterally. No: Rales, Rhonchi, SOB, Wheezes Gastrointestinal: Yes: Normal Bowel Sounds, Soft. No: Distention, Tenderness Edema: No Peripheral Pulses WNL: Yes Peripheral Pulses: Left Doralis Pedis: 2+, Right Dorsalis Pedis: 2+ Neurological: Yes: Alert, Oriented Psychiatric: Yes: Alert, Oriented Labs: CBC, BMP 04/05/18 12:58 04/05/18 12:58 INR, PTT INR 0.99 (0.83-1.09) 04/05/18 12:58 - ....Imaging Chest X-ray: Report Reviewed, Image Reviewed EKG: Report Reviewed, Image Reviewed Other: Report Reviewed, Image Reviewed (tele-nsr, artifact, no arrhythmias) Assessment/Plan 52 f with a pMH of asthma, anemia, Chiari malformation s/p craniotomy (4 years ago) and HTN. She was at [facility] to detox from cocaine, last use may be 03/31. She developed chest pain which she described as a pressure, radiating down her left arm, associated with SOB. BP 175/90 mmHg. EKG without changes. Chest Pain Cocaine + in utox cardiac enzymes wnl x 3 No Beta blockers secondary to asthma and cocaine use Continue aspirin 81 mg Agree with NTP for chest pain Obtain echocardiogram consider rule out a PE additional ischemic work up can likely be done as outpatient HTN-uncontrolled cont amlodipine 5 mg daily and can uptitrate to 10mg daily if needed beyond that if needed can add HCTZ 25mg daily Lung Mass Hx of smoking Suspicious for malignancy Evaluation in progress
--- NOTE | 2018-04-05 17:54 | PN ---
Physical Exam: SUBJECTIVE: Patient seen and examined at bedside. No further episodes of chest pain. OBJECTIVE: Vital Signs Period Temp Pulse Resp BP Sys/Gibson Pulse Ox Last 24 Hr 97.8 F-98.5 F 59-75 16-18 142-180/71-89 97-100 GENERAL: The patient is awake, alert, and fully oriented, in no acute distress. LUNGS: Breath sounds equal, clear to auscultation bilaterally, no wheezes, no crackles, no accessory muscle use. HEART: Regular rate and rhythm, S1, S2 without murmur, rub or gallop. ABDOMEN: Soft, nontender, nondistende EXTREMITIES: 2+ pulses, warm, well-perfused, no edema. NEUROLOGICAL: Cranial nerves II through XII grossly intact. Normal speech Laboratory Results - last 24 hr 04/04/18 04/04/18 04/04/18 17:18 18:26 19:50 WBC RBC Hgb Hct MCV MCH MCHC RDW Plt Count MPV Absolute Neuts (auto) Neutrophils % Lymphocytes % Monocytes % Eosinophils % Basophils % Nucleated RBC % PT with INR INR PTT (Actin FS) Sodium Potassium Chloride Carbon Dioxide Anion Gap BUN Creatinine Creat Clearance w eGFR Random Glucose Calcium Magnesium Troponin I < 0.02 Urine Color Ltyellow Urine Appearance Slcloudy Urine pH 7.0 Ur Specific Garrison 1.016 Urine Protein Negative Urine Glucose (UA) Negative Urine Ketones Negative Urine Blood 1+ H Urine Nitrite Negative Urine Bilirubin Negative Urine Urobilinogen Negative Ur Leukocyte Esterase Trace Urine WBC (Auto) 5 Urine RBC (Auto) 10 Ur Epithelial Cells Moderate Urine Mucus Rare Opiates Screen Negative Methadone Screen Negative Barbiturate Screen Negative Phencyclidine Screen Negative Ur Amphetamines Screen Negative MDMA (Ecstasy) Screen Negative Benzodiazepines Screen Negative Cocaine Screen Positive A* U Marijuana (THC) Screen Negative 04/05/18 04/05/18 04/05/18 01:40 12:58 12:58 WBC 7.5 RBC 4.36 Hgb 12.2 Hct 36.6 MCV 84.1 MCH 27.9 MCHC 33.2 RDW 14.0 Plt Count 319 MPV 6.5 L Absolute Neuts (auto) 3.6 Neutrophils % 48.0 Lymphocytes % 35.4 Monocytes % 9.0 Eosinophils % 6.4 H Basophils % 1.2 Nucleated RBC % 0 PT with INR 11.70 INR 0.99 PTT (Actin FS) 32.1 Sodium Potassium Chloride Carbon Dioxide Anion Gap BUN Creatinine Creat Clearance w eGFR Random Glucose Calcium Magnesium Troponin I < 0.02 Urine Color Urine Appearance Urine pH Ur Specific Garrison Urine Protein Urine Glucose (UA) Urine Ketones Urine Blood Urine Nitrite Urine Bilirubin Urine Urobilinogen Ur Leukocyte Esterase Urine WBC (Auto) Urine RBC (Auto) Ur Epithelial Cells Urine Mucus Opiates Screen Methadone Screen Barbiturate Screen Phencyclidine Screen Ur Amphetamines Screen MDMA (Ecstasy) Screen Benzodiazepines Screen Cocaine Screen U Marijuana (THC) Screen 04/05/18 12:58 WBC RBC Hgb Hct MCV MCH MCHC RDW Plt Count MPV Absolute Neuts (auto) Neutrophils % Lymphocytes % Monocytes % Eosinophils % Basophils % Nucleated RBC % PT with INR INR PTT (Actin FS) Sodium 139 Potassium 4.4 Chloride 106 Carbon Dioxide 26 Anion Gap 6 L BUN 19 H Creatinine 0.8 Creat Clearance w eGFR > 60 Random Glucose 102 Calcium 8.7 Magnesium 2.0 Troponin I Urine Color Urine Appearance Urine pH Ur Specific Garrison Urine Protein Urine Glucose (UA) Urine Ketones Urine Blood Urine Nitrite Urine Bilirubin Urine Urobilinogen Ur Leukocyte Esterase Urine WBC (Auto) Urine RBC (Auto) Ur Epithelial Cells Urine Mucus Opiates Screen Methadone Screen Barbiturate Screen Phencyclidine Screen Ur Amphetamines Screen MDMA (Ecstasy) Screen Benzodiazepines Screen Cocaine Screen U Marijuana (THC) Screen Active Medications Generic Name Dose Route Start Last Admin Trade Name Freq PRN Reason Stop Dose Admin Acetaminophen 650 mg 04/04/18 18:47 04/04/18 18:53 Tylenol - PO 650 mg Q6H PRN Administration PAIN LEVEL 1-5 Amlodipine Besylate 5 mg 04/05/18 10:00 04/05/18 09:02 Norvasc - PO 5 mg DAILY STAN Administration Aspirin 81 mg 04/05/18 10:00 04/05/18 09:02 Asa - PO 81 mg DAILY STAN Administration ASSESSMENT/PLAN 52 year-old female with a significant PMH of HTN, Arnold Chiari malformation s/ p craniectomy (x 4 years), asthma, anemia and polysubstance abuse (ETOH, crack, marijuana). Placed on observation for chest pain. Chest Pain --urine toxicology +cocaine --trop neg x 3; ECG not indicative of acute ischemic event; CXR unremarkable from cardiac perspective --low risk for PE on Wells' Score --Echo pending --Telemetry monitoring --Continue ASA 81 mg --followed by cardiology Hypertension --BP still elevated, increase amlodipine 10mg Lung Nodule --04/04 CT chest: 2.1cm nodule LLL highly suspicious for malignancy --IR evaluation on Saturday for biopsy Chiari malformation s/p craniotomy --Stable Asthma --Stable Anemia --h/h stable Polysubstance abuse --Urine toxicology positive for cocaine --has been in rehab --No s/s of withdrawal --Will continue to monitor closely FEN --Fluids: PO intake adequate --Electrolytes: replete as indicated --Nutrition: low sodium diet DVT Prophylaxis: subq heparin Dispo: pt currently requires further inpatient care. Full code. Visit type - Emergency Visit Emergency Visit: Yes ED Registration Date: 04/04/18 Care time: The patient presented to the Emergency Department on the above date and was hospitalized for further evaluation of their emergent condition. - New Patient This patient is new to me today: Yes Date on this admission: 04/05/18 - Critical Care Critical Care patient: No
[2018-04-05] MEDS ORDERED: NITROGLYCERIN SUBLINGUAL 1/150 0.4 MG TAB SL PRN (21:39)
[2018-04-05] MEDS: MELATONIN 5 MG TABLETS PO PRN (22:34)
[2018-04-05] MEDS: HEPARIN NA (PORCINE) 5,000 UNITS/ML 1ML VIAL SQ SCH (22:34)
[2018-04-05] MEDS: ACETAMINOPHEN 325 MG TABLET (FP) PO PRN (22:35)
[2018-04-06] MEDS: HEPARIN NA (PORCINE) 5,000 UNITS/ML 1ML VIAL SQ SCH ×3 (06:24→23:29)
[2018-04-06] MEDS: ACETAMINOPHEN 325 MG TABLET (FP) PO PRN (06:24)
[2018-04-06] MEDS: ASPIRIN 81 MG CHEWABLE TABLETS PO SCH (09:49)
[2018-04-06] MEDS: amLODIPine BESYLATE 10 MG TABLET (FP) PO SCH (09:49)
--- NOTE | 2018-04-06 10:55 | EKG ---
Test Reason : Blood Pressure : / mmHG Vent. Rate : 070 BPM Atrial Rate : 070 BPM P-R Int : 144 ms QRS Dur : 092 ms QT Int : 430 ms P-R-T Axes : 053 023 010 degrees QTc Int : 464 ms NORMAL SINUS RHYTHM VOLTAGE CRITERIA FOR LEFT VENTRICULAR HYPERTROPHY NONSPECIFIC ST ABNORMALITY ABNORMAL ECG Confirmed by KEVYN SANTAMARIA MD ([id number]) on 04/06/2018 10:55:47 AM Referred By: Morales EL Confirmed By:KEVYN SANTAMARIA MD
[2018-04-06] MEDS: NICOTINE 14 MG/24 HOURS TOPICAL PATCH TD SCH (14:21)
--- NOTE | 2018-04-06 15:00 | PN ---
Progress Note, Physician History of Present Illness: seen and examined today in [facility]. no overnight events. no new complaints. - Current Medication List Current Medications: Active Medications Acetaminophen (Tylenol -) 650 mg PO Q6H PRN PRN Reason: PAIN LEVEL 1-5 Last Admin: 04/06/18 06:24 Dose: 650 mg Amlodipine Besylate (Norvasc -) 10 mg PO DAILY [facility] Last Admin: 04/06/18 09:49 Dose: 10 mg Heparin Sodium (Porcine) (Heparin -) 5,000 unit SQ TID [facility] Last Admin: 04/06/18 14:21 Dose: 5,000 unit Melatonin (Melatonin) 5 mg PO HS PRN PRN Reason: INSOMNIA Last Admin: 04/05/18 22:34 Dose: 5 mg Nicotine (Nicoderm Patch -) 14 mg TD DAILY [facility] Last Admin: 04/06/18 14:21 Dose: 14 mg Nitroglycerin (Nitrostat -) 0.4 mg SL Q5M PRN PRN Reason: FOR CHEST PAIN - Objective Vital Signs: Vital Signs Temperature 97.8 F 04/06/18 10:00 Pulse Rate 66 04/06/18 10:00 Respiratory Rate 18 04/06/18 10:00 Blood Pressure 150/70 04/06/18 10:00 O2 Sat by Pulse Oximetry (%) 98 04/06/18 08:00 Constitutional: Yes: No Distress, Calm Eyes: Yes: Conjunctiva Clear, EOM Intact, PERRL HENT: Yes: Atraumatic, Normocephalic Neck: Yes: Supple, Trachea Midline Cardiovascular: Yes: Regular Rate and Rhythm, S1, S2. No: Bradycardia, Tachycardia, Pulse Irregular, Bruit, JVD, Gallop, Murmur, Rub, S3, S4, Varicosities Respiratory: Yes: Regular. No: Rales, Rhonchi, Wheezes Gastrointestinal: Yes: Normal Bowel Sounds, Soft. No: Distention, Tenderness Extremities: Yes: WNL Edema: No Peripheral Pulses WNL: Yes Neurological: Yes: Alert, Oriented Psychiatric: Yes: Alert, Oriented Labs: CBC, BMP 04/05/18 12:58 04/05/18 12:58 INR, PTT INR 0.99 (0.83-1.09) 04/05/18 12:58 - ....Imaging Chest X-ray: Report Reviewed, Image Reviewed EKG: Report Reviewed, Image Reviewed Other: Report Reviewed, Image Reviewed (tele-nsr, no arrhythmias) Assessment/Plan 52 f with a pMH of asthma, anemia, Chiari malformation s/p craniotomy (4 years ago) and HTN. She was at [facility] to detox from cocaine, last use may be 03/31. She developed chest pain which she described as a pressure, radiating down her left arm, associated with SOB. BP 175/90 mmHg. EKG without changes. Chest Pain Cocaine + in utox cardiac enzymes wnl x 3 No Beta blockers secondary to asthma and cocaine use Can stop aspirin 81 mg for planned biopsy then resume when safe to Obtain echocardiogram additional ischemic work up can likely be done as outpatient can dc tele HTN-above goal but improved cont amlodipine 10mg daily if needed beyond that if needed can add HCTZ 25mg daily -outpatient fup Lung Mass Hx of smoking Suspicious for malignancy Evaluation in progress Please call with additional questions.
--- NOTE | 2018-04-06 17:40 | CONSULT ---
Consult Consult Specialty:: Oncology Referred by:: Dr. Isbell Reason for Consultation:: lung nodule - History of Present Illness Chief Complaint: chest pain History of Present Illness: 52F with hx Chiari malformation s/p craniotomy 4 years ago, asthma, polysubstance absue (cocaine, etoh, currently in rehab) presented with 1 day history of left sided chest pain involving left arm. Ruled out for KS. Utox + for cocaine. CXR revealed LLL nodule. Follow-up CT scan showed 2.1 cm nodule in superior segment of LLL with a slightly spiculated margin, highly suspicious for malignancy. There was no obvious mediastinal LAD. Patients c/o cough x 5 days, productive of clear sputum, and associated URI sx. Reports 40 lb weight loss in about 3 months but states that weight has been going up for the past 3 weeks. Quit smoking 1 month ago after about 30 pack years. Has had intermittent HAs since craniotomy, without recent change. No neurological symptoms. - Past Medical History [employer]: Yes: Other (Chiari malformation) Cardio/Vascular: No: CAD, CHF Pulmonary: Yes: Asthma Gastrointestinal: No: Cancer ...LMP Comment: menopause ...: No - Past Surgical History Past Surgical History: Yes: Craniotomy - Alcohol/Substance Use Hx Alcohol Use: Yes History of Substance Use: reports: Cocaine, Marijuana - Smoking History Smoking history: Former smoker Have you smoked in the past 12 months: Yes Aproximately how many cigarettes per day: 15 Home Medications - Allergies Allergies/Adverse Reactions: Allergies Allergy/AdvReac Type Severity Reaction Status Date / Time No Known Allergies Allergy Verified 03/31/18 21:53 - Home Medications Home Medications: Ambulatory Orders Albuterol Sulfate Inhaler - [Ventolin HFA Inhaler -] 2 inh PO Q4H PRN #1 inhaler 03/09/18 Family Disease History - Family Disease History Family Disease History: CA: Mother (metastatic breast ca, diagnosed at older age ) Review of Systems - Review of Systems Constitutional: reports: Unintentional Wgt. Loss. denies: Fever Eyes: denies: No Symptoms HENT: reports: Nasal Congestion Neck: reports: Tenderness Cardiovascular: reports: Chest Pain Respiratory: reports: Cough Gastrointestinal: reports: No Symptoms Genitourinary: reports: No Symptoms Neurological: reports: Headache. denies: Dizziness, Numbness, Parasthesia, Unsteady Gait, Weakness Physical Exam Vital Signs: Vital Signs Temperature 98.5 F 04/06/18 14:00 Pulse Rate 67 04/06/18 14:00 Respiratory Rate 18 04/06/18 10:00 Blood Pressure 145/77 04/06/18 14:00 O2 Sat by Pulse Oximetry (%) 98 04/06/18 16:00 Constitutional: Yes: No Distress Eyes: Yes: Conjunctiva Clear. No: Sclera Icterus Neck: Yes: Supple. No: Lymphadenopathy Respiratory: Yes: Regular Gastrointestinal: Yes: Soft. No: Distention, Splenomegaly, Tenderness Extremities: Yes: WNL Edema: No Neurological: Yes: Alert, Oriented Labs: CBC, BMP 04/05/18 12:58 04/05/18 12:58 Imaging - Results Chest X-ray: Report Reviewed, Image Reviewed X-ray: Report Reviewed Cat Scan: Report Reviewed, Image Reviewed Problem List - Problems (1) Lung mass Assessment/Plan: 52F with 30 pack year smoking history admitted with chest pain and was found to have 2.1 cm LLL nodule. Agree with LEIF joe for CT guided bx given peripheral location Oncology will follow Code(s): R91.8 - OTHER NONSPECIFIC ABNORMAL FINDING OF LUNG FIELD
--- NOTE | 2018-04-06 18:12 | PN ---
Physical Exam: SUBJECTIVE: Patient seen and examined OBJECTIVE: Vital Signs Period Temp Pulse Resp BP Sys/Gibson Pulse Ox Last 24 Hr 97.8 F-98.5 F 58-70 16-20 145-158/70-90 98-98 GENERAL: The patient is awake, alert, and fully oriented, in no acute distress. HEAD: Normal with no signs of trauma. EYES: PERRL, extraocular movements intact, sclera anicteric, conjunctiva clear. No ptosis. ENT: Ears normal, nares patent, oropharynx clear without exudates, moist mucous membranes. NECK: Trachea midline, full range of motion, supple. LUNGS: Breath sounds equal, clear to auscultation bilaterally, no wheezes, no crackles, no accessory muscle use. HEART: Regular rate and rhythm, S1, S2 without murmur, rub or gallop. ABDOMEN: Soft, nontender, nondistended, normoactive bowel sounds, no guarding, no rebound, no hepatosplenomegaly, no masses. EXTREMITIES: 2+ pulses, warm, well-perfused, no edema. NEUROLOGICAL: Cranial nerves II through XII grossly intact. Normal speech, gait not observed. PSYCH: Normal mood, normal affect. SKIN: Warm, dry, normal turgor, no rashes or lesions noted Active Medications Generic Name Dose Route Start Last Admin Trade Name Freq PRN Reason Stop Dose Admin Acetaminophen 650 mg 04/04/18 18:47 04/06/18 06:24 Tylenol - PO 650 mg Q6H PRN Administration PAIN LEVEL 1-5 Amlodipine Besylate 10 mg 04/06/18 10:00 04/06/18 09:49 Norvasc - PO 10 mg DAILY STAN Administration Heparin Sodium (Porcine) 5,000 unit 04/05/18 22:00 04/06/18 14:21 Heparin - SQ 5,000 unit TID STAN Administration Melatonin 5 mg 04/05/18 20:31 04/05/18 22:34 Melatonin PO 5 mg HS PRN Administration INSOMNIA Nicotine 14 mg 04/06/18 14:00 04/06/18 14:21 Nicoderm Patch - TD 14 mg DAILY STAN Administration Nitroglycerin 0.4 mg 04/05/18 21:39 Nitrostat - SL Q5M PRN FOR CHEST PAIN ASSESSMENT/PLAN 52 year-old female with a significant PMH of HTN, Arnold Chiari malformation s/ p craniectomy (x 4 years), asthma, anemia and polysubstance abuse (ETOH, crack, marijuana). Placed on observation for chest pain. Chest Pain --urine toxicology +cocaine --trop neg x 3; ECG not indicative of acute ischemic event; CXR unremarkable from cardiac perspective --low risk for PE on Wells' Score --Echo in am --Telemetry monitoring d/c'd --Continue ASA 81 mg --followed by cardiology Hypertension --BP still elevated, increase amlodipine 10mg Lung Nodule --04/04 CT chest: 2.1cm nodule LLL highly suspicious for malignancy --IR evaluation on Saturday for biopsy --seen and evaluated by oncology Chiari malformation s/p craniotomy --Stable Asthma --Stable Anemia --h/h stable Polysubstance abuse --Urine toxicology positive for cocaine --has been in rehab --No s/s of withdrawal --Will continue to monitor closely FEN --Fluids: PO intake adequate --Electrolytes: replete as indicated --Nutrition: low sodium diet DVT Prophylaxis: subq heparin Dispo: pt currently requires further inpatient care. Full code. Visit type - Emergency Visit Emergency Visit: Yes ED Registration Date: 04/04/18 Care time: The patient presented to the Emergency Department on the above date and was hospitalized for further evaluation of their emergent condition. - New Patient This patient is new to me today: No - Critical Care Critical Care patient: No
[2018-04-06] MEDS: MELATONIN 5 MG TABLETS PO PRN (23:29)
[2018-04-07] MEDS: HEPARIN NA (PORCINE) 5,000 UNITS/ML 1ML VIAL SQ SCH (06:41)
[2018-04-07] MEDS: amLODIPine BESYLATE 10 MG TABLET (FP) PO SCH (09:42)
[2018-04-07] MEDS: NICOTINE 14 MG/24 HOURS TOPICAL PATCH TD SCH (09:43)
--- NOTE | 2018-04-07 11:20 | ECHO ---
Name: LAVONNE BOLIVAR Exam:Adult Echocardiogram Study Date: 04/07/2018 09:39 AM Age: 52 yrs Reason For Study: Chest pain Height: 67 in Weight: 165 lb BSA: 1.9 m2 MMode/2D Measurements & Calculations IVSd: 0.97 cm Ao root diam: 3.0 cm LVIDd: 5.6 cm LA dimension: 3.6 cm LVIDs: 3.4 cm ACS: 1.9 cm LVPWd: 1.0 cm IVSs: 1.2 cm LVPWs: 1.3 cm EDV(Teich): 156.0 ml ESV(Teich): 48.8 ml LVOT diam: 2.0 cm Doppler Measurements & Calculations MV E max federico: 85.2 cm/sec Ao V2 max: 209.8 cm/sec MV A max federico: 77.8 cm/sec Ao max P.6 mmHg MV E/A: 1.1 Ao V2 mean: 147.0 cm/sec Ao mean P.7 mmHg Ao V2 VTI: 39.9 cm NATA(I,D): 1.7 cm2 NATA(V,D): 1.7 cm2 LV V1 max P.0 mmHg SV(LVOT): 69.8 ml LV V1 mean P.6 mmHg LV V1 max: 111.4 cm/sec LV V1 mean: 74.0 cm/sec LV V1 VTI: 22.2 cm TR max federico: 243.6 cm/sec PA V2 max: 124.9 cm/sec TR max P.8 mmHg PA max P.2 mmHg PA V2 mean: 90.5 cm/sec PA mean P.7 mmHg PA V2 VTI: 29.0 cm Med Peak E' Federico: 6.4 cm/sec Med E/e': 13.4 Lat Peak E' Federico: 12.0 cm/sec Lat E/e': 7.1 Procedure A complete two-dimensional transthoracic echocardiogram was performed (2D, M-mode, Doppler and color flow Doppler). Left Ventricle The left ventricle is normal in size. Left ventricular systolic function is normal. Ejection Fraction = 60- 65%. No regional wall motion abnormalities noted. Right Ventricle The right ventricle is normal size. The right ventricular systolic function is normal. Atria The left atrial size is normal. Right atrial size is normal. Mitral Valve There is mild mitral annular calcification. There is mild mitral regurgitation. Tricuspid Valve The tricuspid valve is normal in structure and function. No tricuspid regurgitation. Right ventricula r systolic pressure is normal. Aortic Valve There is mild aortic sclerosis.;. Aortic mean pressure gradient= 10 mmHg. The calculated aortic valve area using the continuity equation is 1.7 cm2. DI (dimensionless index) is 0.52. No aortic regurgitation i s present. Pulmonic Valve The pulmonic valve is not well visualized. Great Vessels The aortic root is normal size. Pericardium/Pleura There is no pericardial effusion. Interpretation Summary The left ventricle is normal in size. Left ventricular systolic function is normal. No regional wall motion abnormalities noted. Ejection Fraction = 60-65%. The right ventricular systolic function is normal. The left atrial size is normal. Right atrial size is normal. There is mild mitral annular calcification. There is mild mitral regurgitation. There is mild aortic sclerosis. No aortic regurgitation is present. There is no pericardial effusion. Gonsalo Altman MD 04/07/2018 11:19 AM
--- NOTE | 2018-04-07 11:35 | PN ---
Physical Exam: SUBJECTIVE: Patient seen and examined at bedside. No overnight events. No new complaints. Denies CP,SOB, abdominal pain, nausea or vomiting. OBJECTIVE: Vital Signs Period Temp Pulse Resp BP Sys/Gibson Pulse Ox Last 24 Hr 98.1 F-98.6 F 62-82 18-20 123-145/69-78 98-98 GENERAL: AAOx3, NAD HEAD: NCAT EYES: PERRL, EOMI, sclera anicteric, conjunctiva clear. No ptosis. ENT: moist mucous membranes. LUNGS: CTAB , no wheezes, no crackles, no accessory muscle use. HEART: RRR, S1, S2 without murmur, rub or gallop. ABDOMEN: Soft, NTND, NABS, no guarding, no rebound, no hepatosplenomegaly, no masses. EXTREMITIES: 2+ pulses, warm, well-perfused, no edema. NEUROLOGICAL: No focal deficits. . Normal speech, gait not observed. PSYCH: Normal mood, normal affect. Active Medications Generic Name Dose Route Start Last Admin Trade Name Freq PRN Reason Stop Dose Admin Acetaminophen 650 mg 04/04/18 18:47 04/06/18 06:24 Tylenol - PO 650 mg Q6H PRN Administration PAIN LEVEL 1-5 Amlodipine Besylate 10 mg 04/06/18 10:00 04/07/18 09:42 Norvasc - PO 10 mg DAILY STAN Administration Melatonin 5 mg 04/05/18 20:31 04/06/18 23:29 Melatonin PO 5 mg HS PRN Administration INSOMNIA Nicotine 14 mg 04/06/18 14:00 04/07/18 09:43 Nicoderm Patch - TD 14 mg DAILY STAN Administration Nitroglycerin 0.4 mg 04/05/18 21:39 Nitrostat - SL Q5M PRN FOR CHEST PAIN ASSESSMENT/PLAN: Problem List - Problems (1) Lung mass Assessment/Plan: Will need tissue diagnosis for further recommendations. * IR consulted to biopsy will be done on Saturday. * this is because she had taken ASA on 04/06/18 * She has been advised to not take aspirin for any reason prior to this procedure as it will delay it further. * Will check coags prior to procedure. (2) Chest pain Assessment/Plan: ACS has been ruled out * Trops have been negative x3 * no EKG changes suggestive of ischemia. (3) HTN (hypertension) Assessment/Plan: Amlodipine Besylate (Norvasc -) 10 mg PO DAILY (4) Asthma Visit type - Emergency Visit Emergency Visit: Yes ED Registration Date: 04/04/18 Care time: The patient presented to the Emergency Department on the above date and was hospitalized for further evaluation of their emergent condition. - New Patient This patient is new to me today: Yes Date on this admission: 04/07/18 - Critical Care Critical Care patient: No
[2018-04-07 15:40] VITALS: BP 131/70; PULSE 88; TEMP 98.5
== END 2018-04-07 17:25 | disposition other institution (70) ==
LOC: JER 09:50 → JERBED 15:56 → J4W 18:39 → J8W 04-06 17:04
PROVIDERS: ADMIT Internal Medicine; ATTEND Nurse Practitioner Acute Care
PROC: 3E013GC Introduction of Other Therapeutic Substance into Subcutaneous Tissue, Percutaneous Approach (ICD-10-PCS; principal; 2018-04-04)
DX: R07.9 Chest pain, unspecified (principal); I10 Essential (primary) hypertension; R91.8 Other nonspecific abnormal finding of lung field; J45.909 Unspecified asthma, uncomplicated; D64.9 Anemia, unspecified; F14.20 Cocaine dependence, uncomplicated; Z87.798 Personal history of other (corrected) congenital malformations; Z98.890 Other specified postprocedural states; Z87.891 Personal history of nicotine dependence
CPT/HCPCS: 36415; 71046-TC-FY; 71250-TC; 80048; 80053; 80307; 81003; 81015; 82550; 83735; 84484; 85025; 85610; 85730; 93005; 93010; 93306-TC; 96372; 99285-25; G0378; J1644

== ENCOUNTER 2018-04-14 08:12 | Day surgery (SDC) | payer OTHER ==
[2018-04-14 08:25] VITALS: BMI 26.6
[2018-04-14 13:08] VITALS: TEMP 98
[2018-04-14 14:39] VITALS: BP 136/77; PULSE 73
--- NOTE | 2018-04-16 15:58 | PATH ---
Surgical Pathology Report Patient Name: LAVONNE BOLIVAR [facility]. Rec. #: [id number] /Age/Gender: 1965 (Age: 52) / F Account: [id number] Location: RADIOLOGY INTER Taken: 04/14/2018 Received: 04/14/2018 Reported: 04/16/2018 Physicians: Erick Nieto M.D. Mejia Lambert M.D. Specimen(s) Received LEFT LUNG BIOPSY Clinical History 52-year-old female with solitary left upper lobe nodule Final Diagnosis LUNG, LEFT, UPPER LOBE, CT GUIDED CORE BIOPSY: ADENOCARCINOMA, MODERATELY DIFFERENTIATED. SEE COMMENT. Comment: Immunohistochemical stains performed and interpreted at [facility] show the tumor is positive for AE1/3, CK7, TTF-1; while negative for CK20. Additional immunohistochemical stains performed at [place], [place] ([id number]) and interpreted at [facility] show the tumor is positive for Napsin A, while negative for thyroglobulin. Overall immunophenotype is consistent with lung origin. Suggest clinical and radiologic correlation. Findings discussed with STEPHEN Felix. Electronically Signed Paula Randhawa M.D. Gross Description Received in formalin labeled "left lung biopsy," are 3 boyd, cylindrical portions of soft tissue averaging 1.0 cm in length and 0.1 cm diameter. The specimens are submitted in toto in one cassette. 04/14/2018 saudi04/14/2018
== END 2018-04-14 15:30 | disposition home or self-care (01) ==
LOC: JRADIR 08:12
PROVIDERS: ATTEND Nurse Practitioner Acute Care
PROC: 0BBG3ZX Excision of Left Upper Lung Lobe, Percutaneous Approach, Diagnostic (ICD-10-PCS; principal; 2018-04-14)
DX: C34.12 Malignant neoplasm of upper lobe, left bronchus or lung (principal)
CPT/HCPCS: 32405; 71046-TC-FY; 77012-TC; 88305-TC; 88341-TC; 88342-TC